=== PATIENT | female | born 1940 | race Caucasian/White ===

== ENCOUNTER → 2019-04-10 | Outpatient (CLI) | payer MEDICARE, BC ==
--- NOTE | 2019-04-10 17:18 | CT ---
EXAMINATION TYPE: CT brain wo con DATE OF EXAM: 04/10/2019 COMPARISON: HISTORY: ALVARENGA after fall injury x3 days ago CT DLP: 1094 mGycm Automated exposure control for dose reduction was used. FINDINGS: There is some cerebral cortical atrophy. There is no mass effect nor midline shift. There is no sign of intracranial hemorrhage. Calvarium is intact. IMPRESSION: CEREBRAL ATROPHY. NO ACUTE INTRACRANIAL ABNORMALITY.
== END | disposition home or self-care (01) ==
LOC: RADCTMAIN 16:55
PROVIDERS: ATTEND Internal Medicine
DX: G44.311 Acute post-traumatic headache, intractable (principal); G31.9 Degenerative disease of nervous system, unspecified
CPT/HCPCS: 70450

== ENCOUNTER 2020-08-26 16:45 | Observation (INO) | payer MEDICARE, BC ==
[2020-08-26 17:09] LABS: Basophils # (A) 0.1 k/uL (0-0.2); Basophils % (A) 1 %; Eosinophils # (A) 0.3 k/uL (0-0.7); Eosinophils % (A) 5 %; HCT 43.6 % (34.0-46.0); HGB 14.1 gm/dL (11.4-16.0); Lymphocytes # (A) 2.1 k/uL (1.0-4.8); Lymphocytes % (A) 41 %; MCH 28.3 pg (25.0-35.0); MCHC 32.3 g/dL (31.0-37.0); MCV 87.5 fL (80.0-100.0); Mean Platelet Volume 6.7; Monocytes # (A) 0.2 k/uL (0-1.0); Monocytes % (A) 4 %; Neutrophils # (A) 2.5 k/uL (1.3-7.7); Neutrophils % (A) 47 %; Platelet Count 205 k/uL (150-450); RBC 4.98 m/uL (3.80-5.40); RDW 15.9 % (11.5-15.5); WBC 5.2 k/uL (3.8-10.6)
[2020-08-26 17:18] LABS: Albumin 4.2 g/dL (3.5-5.0); Calcium 9.2 mg/dL (8.4-10.2); Magnesium 1.9 mg/dL (1.6-2.3); Potassium 4.2 mmol/L (3.5-5.1); Total Bilirubin 0.5 mg/dL (0.2-1.3); Total Protein 7.4 g/dL (6.3-8.2)
--- NOTE | 2020-08-26 17:23 | XR ---
EXAMINATION TYPE: XR chest 2V DATE OF EXAM: 08/26/2020 COMPARISON: Prior chest x-ray 08/15/2015 HISTORY: Chest pain TECHNIQUE: Frontal and lateral views of the chest are obtained. FINDINGS: There is no focal air space opacity, pleural effusion, or pneumothorax seen. The cardiac silhouette size is stable and enlarged. Prominent lung volumes could be due to underlying COPD. Radha ent is post median sternotomy. The osseous structures are intact. IMPRESSION: No acute cardiopulmonary process.
--- NOTE | 2020-08-26 17:29 | ED ---
Chest Pain HPI - General Chief Complaint: Chest Pain Stated Complaint: chest pain Time Seen by Provider: 08/26/20 16:45 Source: patient, EMS, RN notes reviewed Mode of arrival: EMS - History of Present Illness Initial Comments: this is a 80-year-old female history of heart disease bypass surgery who just a heart failure who states she had the onset this afternoon of retrosternal chest pain with 9/10 severity she did take one nitroglycerin was brought down to a 5 to is brought in by EMS. After a second nitroglycerin the pain is now 0. No fevers chills nausea vomiting sweats no palpitations sensing no radiation of the discomfort. No cough or phlegm production no other modifying factors MD Complaint: chest pain - Related Data Home Medications Medication Instructions Recorded Confirmed Albuterol Inhaler (Mhu) [Ventolin 1 puff INHALATION RT-DAILY PRN 07/24/15 07/25/16 Hfa Inhaler (Mhu)] Butalb/Asprin/Caff 50-325-40Mg 1 cap PO Q4H PRN 07/24/15 07/25/16 [Fiorinal 50-325-40 MG] Isosorbide Mononitrate ER [Imdur] 30 mg PO BID 07/24/15 07/25/16 Sertraline HCl 100 mg PO DAILY 07/24/15 07/25/16 Tiotropium 18 Mcg/Puff [Spiriva] 1 puff INHALATION RT-DAILY 07/24/15 07/25/16 Cyclobenzaprine [Flexeril] 5 mg PO TID PRN 08/13/15 07/25/16 clonazePAM [KlonoPIN] 0.5 mg PO TID PRN 08/13/15 07/25/16 Aspirin EC [Ecotrin] 81 mg PO DAILY 07/25/16 07/25/16 Clopidogrel Bisulfate [Plavix] 75 mg PO DAILY 07/25/16 07/25/16 Ergocalciferol [Vitamin D2] 1.25 mg PO Q7D 07/25/16 07/25/16 Furosemide [Lasix] 40 mg PO DIRECTED 07/25/16 07/25/16 allopurinoL [Zyloprim] 100 mg PO BID 07/25/16 07/25/16 amLODIPine [Norvasc] 5 mg PO BID 07/25/16 07/25/16 Previous Rx's Medication Instructions Recorded HYDROcodone/APAP 10-325MG [[place] 1.5 each PO Q4H PRN #120 tab 08/21/15 10-325] Metoprolol Tartrate [Lopressor] 25 mg PO BID #60 tab 08/21/15 Nitroglycerin Sl Tabs [Nitrostat] 0.4 mg SUBLINGUAL Q5M PRN #25 tab 08/21/15 HYDROcodone/APAP 10-325MG [[place] 1 tab PO Q4HR PRN #6 tab 07/25/16 10-325] traMADol HCl [Ultram] 50 mg PO Q6H PRN #20 tab 07/25/16 Allergies Allergy/AdvReac Type Severity Reaction Status Date / Time [id number]-Vnj Reductase AdvReac Unknown Verified 07/25/16 17:01 Inhibitor zolpidem [From Ambien] AdvReac Unknown Verified 07/25/16 17:01 Review of Systems ROS Statement: Those systems with pertinent positive or pertinent negative responses have been documented in the HPI. ROS Other: All systems not noted in ROS Statement are negative. 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 . History of Any Multi-Drug Resistant Organisms: None Reported Past Surgical History: Coronary Bypass/CABG, Tonsillectomy Additional Past Surgical History / Comment(s): 2010 Cabg-3 vessel, Bilateral FEMEROL ARTERY STENTs about 10 yrs ago. RIGHT CAROTID ENDARTECTOMY, colonoscopy with benign polypectomy. Past Anesthesia/Blood Transfusion Reactions: No Reported Reaction Additional Past Anesthesia/Blood Transfusion Reaction / Comment(s): Pt believes she recieved blood with CABG-no reaction recalled. Past Psychological History: Depression Smoking Status: Former smoker Past Alcohol Use History: None Reported Past Drug Use History: None Reported - Past Family History Mother Family Medical History: Cancer Additional Family Medical History / Comment(s): BREAST with mets- at 67 yrs of age. Father History Unknown: Yes General Exam - General Exam Comments Initial Comments: this is a well-developed well-nourished awake alert oriented 3 female General appearance: alert, in no apparent distress Head exam: Present: atraumatic, normocephalic, normal inspection Eye exam: Present: normal appearance, PERRL, EOMI. Absent: scleral icterus, conjunctival injection, periorbital swelling ENT exam: Present: normal exam, mucous membranes moist Neck exam: Present: normal inspection. Absent: tenderness, meningismus, lymphad enopathy Respiratory exam: Present: normal lung sounds bilaterally. Absent: respiratory distress, wheezes, rales, rhonchi, stridor Cardiovascular Exam: Present: regular rate, normal rhythm, normal heart sounds. Absent: systolic murmur, diastolic murmur, rubs, gallop, clicks GI/Abdominal exam: Present: soft, normal bowel sounds. Absent: distended, tenderness, guarding, rebound, rigid Extremities exam: Present: normal inspection, full ROM, normal capillary refill. Absent: tenderness, pedal edema, joint swelling, calf tenderness Back exam: Present: normal inspection Neurological exam: Present: alert, oriented X3, CN II-XII intact Psychiatric exam: Present: normal affect, normal mood Skin exam: Present: warm, dry, intact, normal color. Absent: rash Course Vital Signs 08/26/20 08/26/20 16:49 18:46 Temperature 98.2 F Pulse Rate 65 71 Respiratory 18 18 Rate Blood Pressure 170/70 120/60 O2 Sat by Pulse 99 96 Oximetry - Reevaluation(s) Reevaluation #1: 08/26/20 19:24 no further chest pain and reevaluation. Chest Pain MDM - MDM review the imaging shows no acute findings. I did discuss the findings with patient and with Dr. Young. Patient be admitted for inpatient evaluation of unstable angina. Cardiology will be consulted. Critical Care Time Critical Care Time: Yes Total Critical Care Time: 31 Critical Care Time: 31 minutes critical care time which includes initial presentation with history physical labs x-rays multiple reevaluation of the patient discussed with the patient family regarding findings discussion with the main physician review of old charting documentation of the above Disposition Clinical Impression: Unstable angina pectoris, Chest pain Disposition: ADMITTED IP TO THIS HOSP Condition: Fair Referrals: Emilie Young MD [Primary Care Provider] - 1-2 days
[2020-08-26 17:30] LABS: INR 0.9 (<1.2); Partial Thromboplastin Time 23.2 sec (22.0-30.0); Prothrombin Time 9.9 sec (9.0-12.0)
[2020-08-26] MEDS ORDERED: HEPARIN SODIUM,PORCINE 5,000 UNIT/ML 1 ML VIAL IV ONE (19:27)
[2020-08-26] MEDS ORDERED: NITROGLYCERIN SL TABS 0.4 MG TAB SUBLINGUAL PRN (19:27)
[2020-08-26] MEDS ORDERED: NON FORMULARY DRUG (Butalb/Asprin/Caff 50-325-40mg 1 EACH Cap) PO PRN (19:28)
[2020-08-26] MEDS ORDERED: traMADol 50 MG TAB PO PRN (19:28)
[2020-08-26] MEDS ORDERED: ALBUTEROL NEBULIZED 2.5 MG/3 ML INHALATION PRN (19:28)
[2020-08-26] MEDS ORDERED: CYCLOBENZAPRINE 5 MG TAB PO PRN (19:28)
[2020-08-26] MEDS ORDERED: SODIUM CHLORIDE 0.9% 1,000 ML IV SCH (19:30)
[2020-08-26] MEDS ORDERED: HEPARIN SOD,PORK IN 0.45% NACL 25,000 UNIT in 0.45% NACL 1 250ML.BAG IV SCH (19:30)
[2020-08-26] MEDS ORDERED: HYDROmorphone 1 MG/ML 1 ML SYRINGE IVP STA (20:08)
[2020-08-26] MEDS: METOPROLOL TARTRATE 25 MG TAB PO SCH (22:27)
[2020-08-26] MEDS: amLODIPine 5 MG TAB PO SCH (22:28)
[2020-08-26] MEDS: allopurinoL 100 MG TAB PO SCH (22:28)
[2020-08-26] MEDS: ISOSORBIDE MONONITRATE ER 30 MG TAB.ER.24H PO SCH (22:28)
[2020-08-26] MEDS: clonazePAM 0.5 MG TAB PO PRN (22:28)
[2020-08-26] MEDS ORDERED: HEPARIN SODIUM,PORCINE 5,000 UNIT/ML 1 ML VIAL IV PRN (22:43)
[2020-08-27] MEDS: NITROGLYCERIN OINT 1 INCH/GM PACKET TOPICAL SCH ×2 (03:03→06:50)
[2020-08-27 06:29] LABS: Cholesterol 238 mg/dL (<200); HDL Cholesterol 33 mg/dL (40-60); LDL Cholesterol,Calculated 135 mg/dL (0-99); Triglycerides 352 mg/dL (<150)
[2020-08-27] MEDS ORDERED: PANTOPRAZOLE 40 MG TABLET PO SCH (07:30)
[2020-08-27 07:50] VITALS: RESP 16; TEMP 97.7
[2020-08-27] MEDS: IPRATROPIUM 0.5 MG/2.5 ML NEBU INHALATION SCH ×3 (08:59→16:22)
[2020-08-27] MEDS ORDERED: CLOPIDOGREL 75 MG TAB PO SCH (09:00)
[2020-08-27] MEDS ORDERED: FUROSEMIDE 40 MG TAB PO SCH (09:00)
[2020-08-27] MEDS ORDERED: ASPIRIN 81 MG PO SCH (09:00)
[2020-08-27] MEDS ORDERED: ASPIRIN 325 MG TAB PO SCH (09:00)
[2020-08-27] MEDS ORDERED: SERTRALINE 100 MG TAB PO SCH (09:00)
[2020-08-27] MEDS: ISOSORBIDE MONONITRATE ER 30 MG TAB.ER.24H PO SCH (09:23)
[2020-08-27] MEDS: amLODIPine 5 MG TAB PO SCH (09:23)
[2020-08-27] MEDS: allopurinoL 100 MG TAB PO SCH (09:24)
[2020-08-27] MEDS: METOPROLOL TARTRATE 25 MG TAB PO SCH (09:24)
[2020-08-27] MEDS: HYDROcodone/APAP 10-325MG 1 EACH TAB PO PRN ×2 (09:30→13:28)
--- NOTE | 2020-08-27 10:42 | P.CRDCN ---
History of Present Illness History of present illness: HISTORY OF PRESENTING ILLNESS This is a pleasant 80-year-old female past medical history significant for coronary artery disease status post bypass grafting in 2010 and subsequent PCI to OM1 branch in 2015, history of renal mass status post nephrectomy, hypertension, chronic kidney disease, dyslipidemia and COPD. She follows in the office with Dr. Hernandez. We have been asked to see in consultation for chest pain. He states yesterday through the day she was not feeling like her usual self. She had no appetite and was overall fatigued. In the evening her daughter assisted her to to bed. He immediately upon laying down she felt a heavy sensation in the midsternal region that radiated up to the base of her neck and her jaw felt tight. It was associated with mild nausea. Her daughter gave HER-2 sublingual nitroglycerin and called EMS. On arrival to the emergency department her pain had subsided. She also describes that for the previous 3 days she has been uanble to have a bowel movement and feels like her stomach is distended and bloated. She did have a bowel movement this morning. DIAGNOSTICS EKG reveals sinus mechanism, first-degree AV block and left bundle branch block. Consistent with previous EKGs. No acute changes noted. Chest xray negative for an acute cardiopulmonary process. Laboratory reviewed, CBC unremarkable, sodium 138, potassium 4.2, creatinine 1.28, magnesium 1.9, cardiac enzymes negative 3, NT proBNP 473, LDL 135 and HDL 33. Current cardiac medications include Lasix 10 mg on Wednesday and Wednesday, Norvasc 5 mg twice a day, Imdur 30 mg twice a day, Lopressor 25 mg twice a day and Plavix 75 mg daily. Most recent echocardiogram obtained in 2014 reveals preserved LV systolic function with ejection fraction 55-60%, mild tricuspid regurgitation, mild aortic regurgitation, mild to moderate mitral regurgitation and moderate pulmonary hypertension with an RVSP of 48 mmHg. REVIEW OF SYSTEMS At the time of my exam: CONSTITUTIONAL: Denies fever or chills. CARDIOVASCULAR: Denies chest pain, shortness of breath, orthopnea, PND or pal pitations. RESPIRATORY: Denies cough. GASTROINTESTINAL: Complains of constipation and bloating. Denies abdominal pain, diarrhea, nausea or vomiting. MUSCULOSKELETAL: Denies myalgias. HEMATOLOGIC: Denies history of anemia or bleeding. PHYSICAL EXAMINATION Blood pressure 164/80 heart rate 65 afebrile and maintaining oxygen saturation on room air. CONSTITUTIONAL: No apparent distress. HEENT: Head is normocephalic. Pupils are equal, round. Sclerae anicteric. Mucous membranes of the mouth are moist. No JVD. No carotid bruit. CHEST EXAMINATION: Lungs are clear to auscultation. No chest wall tenderness is noted on palpation or with deep breathing. HEART EXAMINATION: Regular rate and rhythm. S1, S2 heard. Systolic ejection murmur at the left sternal border, no gallops or rub. ABDOMEN: Soft, nontender. Positive bowel sounds. EXTREMITIES: 2+ peripheral pulses, trace bilateral lower extremity edema and no calf tenderness. NEUROLOGIC EXAMINATION: Patient is awake, alert and oriented x3. ASSESSMENT Chest pain, an acute coronary event has been ruled out. Abdominal bloating and constipation Coronary artery disease status post bypass grafting and subsequent PCI Chronic kidney disease with history of nephrectomy Hypertension Dyslipidemia, intolerant to statins COPD Former nicotine dependence General debility requiring 24-hour care PLAN An acute coronary event has been ruled out. Pain possibly related to constipation and bloating causing increased pressure on the chest when she laid flat. Clinically she is euvolemic with some mild lower extremity edema likely related to norvasc. Given her chronic kidney disease we recommend a conservative medical approach. Obtain 2D echocardiogram and doppler study to assess cardiac sturcture and function. Thank you kindly for this consultation. Nurse Practitioner note has been reviewed, I agree with a documented findings and plan of care. Patient was seen and examined. 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 . History of Any Multi-Drug Resistant Organisms: None Reported Past Surgical History: Coronary Bypass/CABG, Tonsillectomy Additional Past Surgical History / Comment(s): 2010 Cabg-3 vessel, Bilateral FEMEROL ARTERY STENTs about 10 yrs ago. RIGHT CAROTID ENDARTECTOMY, colonoscopy with benign polypectomy. Past Anesthesia/Blood Transfusion Reactions: No Reported Reaction Additional Past Anesthesia/Blood Transfusion Reaction / Comment(s): Pt believes she recieved blood with CABG-no reaction recalled. Past Psychological History: Depression Additional Psychological History / Comment(s): Pt resides in her apt alone. She uses a cane to ambulate due to her back problems. She also has a rolling walker with a seat. She no longer drives-family takes her places. Her idania's cook food for her. She performs her own ADLs. If she is out and needs to walk a long distance she will use the store's wheelchair. Smoking Status: Former smoker Past Alcohol Use History: None Reported Past Drug Use History: None Reported - Past Family History Mother Family Medical History: Cancer Additional Family Medical History / Comment(s): BREAST with mets- at 67 yrs of age. Father History Unknown: Yes Medications and Allergies Home Medications Medication Instructions Recorded Confirmed Type Isosorbide Mononitrate ER [Imdur] 30 mg PO BID 07/24/15 08/26/20 History Sertraline HCl 100 mg PO DAILY 07/24/15 08/26/20 History Tiotropium 18 Mcg/Puff [Spiriva] 1 puff INHALATION RT-DAILY 07/24/15 08/26/20 History clonazePAM [KlonoPIN] 0.5 mg PO TID PRN 08/13/15 08/26/20 History Metoprolol Tartrate [Lopressor] 25 mg PO BID #60 tab 08/21/15 08/26/20 Rx Nitroglycerin Sl Tabs [Nitrostat] 0.4 mg SUBLINGUAL Q5M PRN #25 tab 08/21/15 08/26/20 Rx Clopidogrel Bisulfate [Plavix] 75 mg PO DAILY 07/25/16 08/26/20 History allopurinoL [Zyloprim] 100 mg PO BID@1500,1900 07/25/16 08/26/20 History amLODIPine [Norvasc] 5 mg PO BID 07/25/16 08/26/20 History Buprenorphine [[place] 10 MCG/HOUR] 1 patch TRANSDERM FR 08/26/20 08/26/20 History Cholecalciferol [Vitamin D3 (25 1,000 unit PO DAILY 08/26/20 08/26/20 History Mcg = 1000 Iu)] Colchicine 0.6 mg PO DAILY 08/26/20 08/26/20 History Furosemide [Lasix] 10 mg PO WEFR 08/26/20 08/26/20 History Gabapentin 300 mg PO Q6H 08/26/20 08/26/20 History HYDROcodone/APAP 10-325MG [[place] 1 tab PO Q6H 08/26/20 08/26/20 History 10-325] Levothyroxine Sodium [Synthroid] 50 mcg PO DAILY 08/26/20 08/26/20 History Allergies Allergy/AdvReac Type Severity Reaction Status Date / Time hydralazine Allergy Rash/Hives Verified 08/26/20 21:38 Fimxlqf-Cbu-Kap Reductase AdvReac Unknown Verified 07/25/16 17:01 Inhibitor zolpidem [From Ambien] AdvReac Unknown Verified 07/25/16 17:01 Physical Exam Vitals: Vital Signs Temp Pulse Pulse Resp BP BP BP 08/27/20 07:49 97.7 F 65 16 164/80 08/27/20 03:45 19 08/26/20 21:15 98 F 64 18 168/78 08/26/20 18:46 71 18 120/60 08/26/20 16:49 98.2 F 65 18 170/70 Pulse Ox 08/27/20 07:49 95 08/27/20 03:45 08/26/20 21:15 98 08/26/20 18:46 96 08/26/20 16:49 99 Intake and Output 08/26/20 08/27/20 08/27/20 22:59 06:59 14:59 Intake Total 70.872 Output Total 400 Balance -329.128 Intake: Intake, IV Titration 70.872 Amount Heparin Sod,Pork in 0.45% 70.872 NaCl 25,000 unit In 0.45 % NaCl 1 250ml.bag @ 12 UNITS/KG/HR 9.798 mls/hr IV .Q24H [facility] Rx#: [id number] Output: Urine 400 Other: Voiding Method Bedside Commode Bedside Commode # Voids 1 1 Weight 81.647 kg Results 08/26/20 16:54 08/26/20 16:54 Cardiac Enzymes 08/26/20 08/26/20 08/26/20 Range/Units 16:54 16:54 20:07 AST 44 H (14-36) U/L Troponin I <0.012 <0.012 (0.000-0.034) ng/mL 08/26/20 Range/Units 22:59 AST (14-36) U/L Troponin I <0.012 (0.000-0.034) ng/mL Coagulation 08/26/20 08/27/20 Range/Units 16:54 04:58 PT 9.9 (9.0-12.0) sec APTT 23.2 60.4 H (22.0-30.0) sec Lipids 08/27/20 Range/Units 04:58 Triglycerides 352 H (<150) mg/dL Cholesterol 238 H (<200) mg/dL HDL Cholesterol 33 L (40-60) mg/dL CBC 08/26/20 Range/Units 16:54 WBC 5.2 (3.8-10.6) k/uL RBC 4.98 (3.80-5.40) m/uL Hgb 14.1 (11.4-16.0) gm/dL Hct 43.6 (34.0-46.0) % Plt Count 205 (150-450) k/uL Comprehensive Metabolic Panel 08/26/20 Range/Units 16:54 Sodium 138 (137-145) mmol/L Potassium 4.2 (3.5-5.1) mmol/L Chloride 106 (98-107) mmol/L Carbon Dioxide 26 (22-30) mmol/L BUN 23 H (7-17) mg/dL Creatinine 1.28 H (0.52-1.04) mg/dL Glucose 109 H (74-99) mg/dL Calcium 9.2 (8.4-10.2) mg/dL AST 44 H (14-36) U/L ALT 38 H (4-34) U/L Alkaline Phosphatase 116 (38-126) U/L Total Protein 7.4 (6.3-8.2) g/dL Albumin 4.2 (3.5-5.0) g/dL Current Medications Generic Name Dose Route Start Last Admin Trade Name Freq PRN Reason Stop Dose Admin Hydrocodone Bitart/Acetaminophen 1 each 08/26/20 19:28 Hydrocodone/Apap 10-325mg 1 Each Tab PO Q4HR PRN Pain Albuterol Sulfate 2.5 mg 08/26/20 19:28 Albuterol Nebulized 2.5 Mg/3 Ml INHALATION RT-DAILY PRN Shortness Of Breath Or Wheezin Allopurinol 100 mg 08/26/20 21:00 08/26/20 22:28 Allopurinol 100 Mg Tab PO 100 mg BID JAMMIE Administration Amlodipine Besylate 5 mg 08/26/20 21:00 08/26/20 22:28 Amlodipine 5 Mg Tab PO 5 mg BID JAMMIE Administration Aspirin 325 mg 08/27/20 09:00 Aspirin 325 Mg Tab PO DAILY [facility] Clonazepam 0.5 mg 08/26/20 19:28 08/26/20 22:28 Clonazepam 0.5 Mg Tab PO 0.5 mg TID PRN Administration restless legs Clopidogrel Bisulfate 75 mg 08/27/20 09:00 Clopidogrel 75 Mg Tab PO DAILY [facility] Cyclobenzaprine HCl 5 mg 08/26/20 19:28 Cyclobenzaprine 5 Mg Tab PO TID PRN Muscle Pain Ergocalciferol 50,000 unit 09/02/20 09:00 Ergocalciferol 50,000 Unit Cap PO Q7D [facility] Furosemide 40 mg 08/27/20 09:00 Furosemide 40 Mg Tab PO Q48H [facility] Heparin Sodium (Porcine) 0 unit 08/26/20 22:43 Heparin Sodium,Porcine 5,000 Unit/Ml 1 Ml Vial IV PER PROTOCOL PRN Low PTT Protocol Sodium Chloride 1,000 mls @ 20 mls/hr 08/26/20 19:30 08/26/20 22:37 Saline 0.9% IV 20 mls/hr .Q24H JAMMIE Administration Heparin Sodium/Sodium Chloride 250 mls @ 9.798 mls/hr 08/26/20 19:30 08/27/20 06:07 25,000 unit/ Sodium Chloride IV 12 units/kg/hr .Q24H JAMMIE 9.798 mls/hr Titration Protocol 12 UNITS/KG/HR Ipratropium [place] 0.5 mg 08/27/20 08:00 Ipratropium 0.5 Mg/2.5 Ml Nebu INHALATION RT-QID [facility] Isosorbide Mononitrate 30 mg 08/26/20 21:00 08/26/20 22:28 Isosorbide Mononitrate Er 30 Mg Tab.Er.24h PO 30 mg BID JAMMIE Administration Metoprolol Tartrate 25 mg 08/26/20 21:00 08/26/20 22:27 Metoprolol Tartrate 25 Mg Tab PO 25 mg BID [facility] Administration Nitroglycerin 0.4 mg 08/26/20 19:27 Nitroglycerin Sl Tabs 0.4 Mg Tab SUBLINGUAL Q5M PRN Chest Pain Nitroglycerin 1 inch 08/27/20 00:00 08/27/20 06:50 Nitroglycerin Oint 1 Inch/Gm Packet TOPICAL Not Given Q6HR [facility] Non-Formulary Medication 1 cap 08/26/20 19:28 Butalb/Asprin/Caff 50-325-40mg PO Q4H PRN Migraine Headache Pantoprazole Sodium 40 mg 08/27/20 07:30 08/27/20 06:50 Pantoprazole 40 Mg Tablet PO 40 mg AC-BRKFST [facility] Administration Sertraline HCl 100 mg 08/27/20 09:00 Sertraline 100 Mg Tab PO DAILY [facility] Tramadol HCl 50 mg 08/26/20 19:28 Tramadol 50 Mg Tab PO Q6H PRN Pain/Discomfort Intake and Output 08/26/20 08/27/20 08/27/20 22:59 06:59 14:59 Intake Total 70.872 Output Total 400 Balance -329.128 Intake: Intake, IV Titration 70.872 Amount Heparin Sod,Pork in 0.45% 70.872 NaCl 25,000 unit In 0.45 % NaCl 1 250ml.bag @ 12 UNITS/KG/HR 9.798 mls/hr IV .Q24H [facility] Rx#: [id number] Output: Urine 400 Other: Voiding Method Bedside Commode Bedside Commode # Voids 1 1 Weight 81.647 kg 08/26/20 16:54 08/26/20 16:54
[2020-08-27] MEDS: clonazePAM 0.5 MG TAB PO PRN (11:07)
--- NOTE | 2020-08-27 11:46 | ECHOF ---
Referral Reason:cp MEASUREMENTS -------- HEIGHT: 162.6 cm WEIGHT: 81.6 kg BP: 164/80 RVIDd: 2.7 cm (< 3.3) IVSd: 1.2 cm (0.6 - 1.1) LVIDd: 4.9 cm (3.9 - 5.3) LVPWd: 1.0 cm (0.6 - 1.1) IVSs: 1.6 cm LVIDs: 3.3 cm LVPWs: 1.7 cm LA Diam: 3.8 cm (2.7 - 3.8) LAESV Index (A-L): 29.13 ml/m Ao Diam: 2.6 cm (2.0 - 3.7) AV Cusp: 1.6 cm (1.5 - 2.6) MV EXCURSION: 11.892 mm (> 18.000) MV EF SLOPE: 27 mm/s (70 - 150) EPSS: 0.4 cm MV E Wenceslao: 1.42 m/s MV DecT: 248 ms MV A [place]ences[place]o: 1.21 m/s MV E/A Ratio: 1.17 AV maxP.29 mmHg AV meanP.95 mmHg RAP: 5.00 mmHg RVSP: 30.72 mmHg FINDINGS -------- Sinus rhythm. This was a technically adequate study. The left ventricular size is normal. There is borderline concentric left ventricular hypertrophy. Overall left ventricular systolic function is normal with, an EF between 55 - 60 %. The right ventricle is normal in size. LA is midly dilated 29-33ml/m2. The right atrium is normal in size. There is mild aortic valve sclerosis. There is mild aortic regurgitation. There is mild aortic st enosis present. Peak/mean gradient across the Aortic Valve is 17.29mmHg / 8.95mmHg. Mild mitral annular calcification present. [id number] mitral regurgitation is present. Mild tricuspid regurgitation present. Trace/mild (physiologic) pulmonic regurgitation. The aortic root size is normal. IVC Not well visulized. There is no pericardial effusion. CONCLUSIONS -------- 1. The left ventricular size is normal. 2. There is borderline concentric left ventricular hypertrophy. 3. Overall left ventricular systolic function is normal with, an EF between 55 - 60 %. 4. LA is midly dilated 29-33ml/m2. 5. There is mild aortic valve sclerosis. 6. There is mild aortic regurgitation. 7. There is mild aortic stenosis present. 8. Peak/mean gradient across the Aortic Valve is 17.29mmHg / 8.95mmHg. 9. Mild mitral annular calcification present. 10. [id number] mitral regurgitation is present. 11. Mild tricuspid regurgitation present. 12. Trace/mild (physiologic) pulmonic regurgitation. 13. There is no pericardial effusion. MANAGED CARE DIRECTOR: ANURAG Zhou
[2020-08-27 12:29] VITALS: BP 151/70; PULSE 61
--- NOTE | 2020-08-27 12:59 | P.HPIM ---
History of Present Illness H&P Date: 08/27/20 Chief Complaint: chest pain History and physical and discharge summary This is an 80 year old female with previous medical history significant for coronary artery disease post CABG X 3 with MIKE to LAD, SVG to Dx and SVG to RCA, with last heart catherization done in 2014 which found chronically occluded RCA, chronically occluded MIKE to LAD and patent SVG to Dx and patent SVG to RCA, she was also found to have critical stenosis of the OM1 and she underwent PCI of the vessel, also history of hypertension and hypertensive cardiovascular disease, hyperlipidemia, PAD, COPD and CKD [id number], with significant spondylosis of the lumbar spine and chronic pain syndrome, has been on multiple medications chronically to keep her pain under control, higuera been inactive for quiet sometimes and stay in her wheelchair most of the time and her daughter Zoya is her primary career representative, patient presented o the Emergency department at [facility] via EMS after she developed to have retrosternal chest pain 9/10 in intensity, she did take one nitroglycerin which brought it down to 5/10 and she cam to the hospital for evaluation, her EKG was ok and her troponins were negative, was admitted for cardiac evaluation. Review of Systems Constitutional: Reports chronic pain, Reports fatigue, Reports weakness, Denies fever Ears: bilateral: decreased hearing Ears, nose, mouth and throat: Denies dysphagia, Denies neck lump, Denies swelling in throat, Denies sore throat Cardiovascular: Reports chest pain, Reports decreased exercise tolerance, Reports dyspnea on exertion, Reports edema, Reports shortness of breath, Denies rapid heart beat, Denies syncope Respiratory: Denies congestion, Denies cough with sputum, Denies home oxygen, Denies sleep apnea, Denies snoring, Denies wheezing Gastrointestinal: Denies abdominal pain, Denies bloating, Denies BRBPR, Denies change in bowel habits, Denies heartburn, Denies hematemesis, Denies melena, Denies nausea, Denies vomiting Genitourinary: Reports nocturia, Denies dysuria Menstruation: Reports postmenopausal Musculoskeletal: Reports gait dysfunction, Reports low back pain, Reports morning stiffness, Reports muscle cramps, Reports muscle weakness, Reports myalgias, Reports shooting leg pain Musculoskeletal: bilateral: ankle pain, ankle stiffness, ankle swelling, foot pain, foot stiffness, foot swelling, hand pain, hand stiffness, hip pain, hip st iffness, knee pain, knee stiffness, shoulder pain, shoulder stiffness, wrist pain, wrist stiffness, absent: elbow pain, elbow stiffness, elbow swelling, hand swelling, hip swelling, knee swelling, shoulder swelling, wrist swelling Integumentary: Denies pruritus, Denies rash Neurological: Reports gait dysfunction, Reports hearing difficulties, Reports paresthesias, Reports weakness Psychiatric: Reports anxiety, Reports depression, Denies sadness/tearfulness, Denies sleep disturbances, Denies suicidal ideation Endocrine: Denies fatigue, Denies weight change Past Medical History Past Medical History: Coronary Artery Disease (CAD), Chest Pain / Angina, COPD, CVA/TIA, Hyperlipidemia, Hypertension, Myocardial Infarction ([place]), Myocardial Infarction (non Q-wave), Musculoskeletal Disorder, Osteoarthritis (OA), Renal Disease, Thyroid Disorder, Vascular Disorder Additional Past Medical History / Comment(s): Other HX: Solitary kidney (L kidney nonfunctioning), PVD, TIA, vertigo, GOUT bilateral feet toes and R thumb, CHRONIC LUMBAR BACK PAIN, heniated discs. . History of Any Multi-Drug Resistant Organisms: None Reported Past Surgical History: Coronary Bypass/CABG, Tonsillectomy Additional Past Surgical History / Comment(s): 2010 Cabg-3 vessel, Bilateral FEMEROL ARTERY STENTs about 10 yrs ago. RIGHT CAROTID ENDARTECTOMY, colonoscopy with benign polypectomy. Past Anesthesia/Blood Transfusion Reactions: No Reported Reaction Additional Past Anesthesia/Blood Transfusion Reaction / Comment(s): Pt believes she recieved blood with CABG-no reaction recalled. Past Psychological History: Depression Additional Psychological History / Comment(s): Pt resides in her apt alone. She uses a cane to ambulate due to her back problems. She also has a rolling walker with a seat. She no longer drives-family takes her places. Her idania's cook food for her. She performs her own ADLs. If she is out and needs to walk a long distance she will use the store's wheelchair. Smoking Status: Former smoker Past Alcohol Use History: None Reported Past Drug Use History: None Reported - Past Family History Mother Family Medical History: Cancer Additional Family Medical History / Comment(s): BREAST with mets- at 67 yrs of age. Father History Unknown: Yes Medications and Allergies Home Medications Medication Instructions Recorded Confirmed Type Isosorbide Mononitrate ER [Imdur] 30 mg PO BID 07/24/15 08/26/20 History Sertraline HCl 100 mg PO DAILY 07/24/15 08/26/20 History Tiotropium 18 Mcg/Puff [Spiriva] 1 puff INHALATION RT-DAILY 07/24/15 08/26/20 History clonazePAM [KlonoPIN] 0.5 mg PO TID PRN 08/13/15 08/26/20 History Metoprolol Tartrate [Lopressor] 25 mg PO BID #60 tab 08/21/15 08/26/20 Rx Nitroglycerin Sl Tabs [Nitrostat] 0.4 mg SUBLINGUAL Q5M PRN #25 tab 08/21/15 08/26/20 Rx Clopidogrel Bisulfate [Plavix] 75 mg PO DAILY 07/25/16 08/26/20 History allopurinoL [Zyloprim] 100 mg PO BID@1500,1900 07/25/16 08/26/20 History amLODIPine [Norvasc] 5 mg PO BID 07/25/16 08/26/20 History Buprenorphine [Butrans 10 MCG/HOUR] 1 patch TRANSDERM FR 08/26/20 08/26/20 History Cholecalciferol [Vitamin D3 (25 1,000 unit PO DAILY 08/26/20 08/26/20 History Mcg = 1000 Iu)] Colchicine 0.6 mg PO DAILY 08/26/20 08/26/20 History Furosemide [Lasix] 10 mg PO WEFR 08/26/20 08/26/20 History Gabapentin 300 mg PO Q6H 08/26/20 08/26/20 History HYDROcodone/APAP 10-325MG [[place] 1 tab PO Q6H 08/26/20 08/26/20 History 10-325] Levothyroxine Sodium [Synthroid] 50 mcg PO DAILY 08/26/20 08/26/20 History Allergies Allergy/AdvReac Type Severity Reaction Status Date / Time hydralazine Allergy Rash/Hives Verified 08/26/20 21:38 Itwccsp-Zgf-Yfl Reductase AdvReac Unknown Verified 07/25/16 17:01 Inhibitor zolpidem [From Ambien] AdvReac Unknown Verified 07/25/16 17:01 Physical Exam Vitals: Vital Signs Temp Pulse Pulse Resp BP BP Pulse Ox 08/26/20 21:15 98 F 64 18 168/78 98 08/26/20 18:46 71 18 120/60 96 08/26/20 16:49 98.2 F 65 18 170/70 99 Intake and Output 08/26/20 08/26/20 08/27/20 14:59 22:59 06:59 Other: Voiding Method Bedside Commode # Voids 1 Weight 81.647 kg Physical examination: HEENT: head is atraumatic normocephalic, pupils were equal round reactive to light and accommodations extra ocular muscle movements were intact. Neck: supple, no JVP, decreased carotid upstrokes bilaterally. Chest: decrease breath sounds at the bases with few ronchi and minimal expiratory wheezes, no chest wall renderness or intercostal retraction. Heart: first heart sound is depressed, second heart sound is normal there is MATT 2/6 located at the left sternal border. Abdomen: full , distended , non specific tenderness, positive bowel sounds. Extremities: there is trace edema no alexa tenderness DP +1 bilaterally. Neurologic examination: patient is awake alert and oriented X 3 CN II- XII are grossly intact , muscle power 4/5 in bilateral upper extremities and 3/5 in bilateral lower extremities, deep tendon reflexes were depressed. Results CBC & Chem 7: 08/26/20 16:54 08/26/20 16:54 Labs: Abnormal Lab Results - Last 24 Hours (Table) 08/26/20 08/26/20 Range/Units 16:54 16:54 RDW 15.9 H (11.5-15.5) % BUN 23 H (7-17) mg/dL Creatinine 1.28 H (0.52-1.04) mg/dL Glucose 109 H (74-99) mg/dL AST 44 H (14-36) U/L ALT 38 H (4-34) U/L Thrombosis Risk Factor Assmnt - DVT/VTE Prophylaxis DVT/VTE Prophylaxis: Pharmacologic Prophylaxis ordered - Choose All That Apply Any of the Below Risk Factors Present?: Yes Each Factor Represents 1 point: Abnormal pulmonary function (COPD), Obesity (BMI >25) Each Risk Factor Represents 3 Points: Age 75 years or older Thrombosis Risk Factor Assessment Total Risk Factor Score: 5 Thrombosis Risk Factor Assessment Level: High Risk Assessment and Plan Assessment: Assessment and plan: 1. Chest pain likely related to CAD. we will continue with ASA 325 mg orally daily, plavix 75 mg orally daily, metoprolol 25 mg orally bid and patient has not been taking STATINS and declined PCSK9 due to sever myopathy and she is aware of the risk of worsening CAD and her daughter is aware also, troponins were negative , we will continue with Nitro paste and heparin drip ,cardiology consultaion and echocardiogram, she will likely need left heart catherization. 2. history of CAD post CABG x3 in 2010 and last heart catherization was in 2014. we will continue with current treatment as in paragraph #1. 3. Hypertension and hypertensive cardiovascular disease. we will continue with Metoprolol 25 mg orally bid and Amlodipine 5 mg orally bid. 4. Hyperlipidemia. patient is intolerant to STATINS due to sever myopathy. 5. Hypothyroidism. we will continue with Synthroid 50 mcg orally daily. 6. CKD stage 3a. stable. 7. history of gout. we will continue with Allopurinol 100 mg orally BID along with Colchicine 0.6 mg orally daily. 8. COPD. we will continue with nebulized treatment. 9. Restless leg syndrom. we will continue with Klonopin 0.5 mg orally tid. 10. Depression. we will continue with Sertraline 100 mg po daily. 11. chronic pain syndrome due to sever spondylosis of the lumbar spine . we will continue with [place] 10/325 mg orally every 6 hours. 12. PAD. post PTBA. we will continue with ASA 325 mg orally daily and plavix 75 mg orally daily, not able to take STATINS. 13. DVT prophylaxis. currently on heparin drip. 14. GI prophylaxis. we will continue with protonix 40 mg orally daily. 15. OBS.
[2020-08-27] MEDS ORDERED: GABAPENTIN 300 MG CAP PO SCH (14:30)
[2020-09-02] MEDS ORDERED: ERGOCALCIFEROL 50,000 UNIT CAP PO SCH (09:00)
== END 2020-08-27 16:15 | disposition home or self-care (01) ==
LOC: EC 16:45 → 3NCARDOBS 19:27
PROVIDERS: ADMIT Internal Medicine; ATTEND Internal Medicine
DX: I25.110 Atherosclerotic heart disease of native coronary artery with unstable angina pectoris (principal); E03.9 Hypothyroidism, unspecified; E78.5 Hyperlipidemia, unspecified; I25.810 Atherosclerosis of coronary artery bypass graft(s) without angina pectoris; I13.0 Hypertensive heart and chronic kidney disease with heart failure and stage 1 through stage 4 chronic kidney disease, or unspecified chronic kidney disease; F32.9 Major depressive disorder, single episode, unspecified; I44.7 Left bundle-branch block, unspecified; I44.0 Atrioventricular block, first degree; G25.81 Restless legs syndrome; G89.4 Chronic pain syndrome; I25.2 Old myocardial infarction; I50.9 Heart failure, unspecified; I73.9 Peripheral vascular disease, unspecified; J44.9 Chronic obstructive pulmonary disease, unspecified; K59.00 Constipation, unspecified; M47.816 Spondylosis without myelopathy or radiculopathy, lumbar region; N18.31 Chronic kidney disease, stage 3a; Z79.02 Long term (current) use of antithrombotics/antiplatelets; Z79.82 Long term (current) use of aspirin; Z79.890 Hormone replacement therapy; Z79.899 Other long term (current) drug therapy; Z86.73 Personal history of transient ischemic attack (TIA), and cerebral infarction without residual deficits; Z87.891 Personal history of nicotine dependence; Z90.5 Acquired absence of kidney
CPT/HCPCS: 93005 ×2; 96365; 96366 ×2; 96376; 96375; 99291; 36415; 94640; 93306; 97161; 83880; 80061; 80053; 82550; 83735; 84484; 85025; 85610; 85730 ×2; 71046; G0378 ×2; J1644 ×2; J1170

== ENCOUNTER 2020-10-18 00:02 | Observation (INO) | payer MEDICARE, BC ==
--- NOTE | 2020-10-18 00:08 | ED ---
Chest Pain HPI - General Stated Complaint: Chest pain Time Seen by Provider: 10/18/20 00:03 Source: RN notes reviewed, old records reviewed - History of Present Illness Initial Comments: This is an 80-year-old female with a long medical history coming in, long history of heart disease coming in for persistent chest pain patient has had episodic chest pain for weeks. Weeks to months. Patient was apparently associated value and regarding her heart and transferred for inpatient treatment. Patient was discharged home with continues to have chest pain. Patient is substernal chest pain just prior to arrival. MD Complaint: chest pain -: hour(s) Onset: during rest Pain Location: substernal, left chest Pain Radiation: LUE Severity: moderate Severity scale (1-10): 4 Quality: heaviness Consistency: constant Improves With: nothing Worsens With: nothing Anginal Symptoms: nausea, diaphoresis, dyspnea Other Symptoms: palpitations Treatments Prior to Arrival: none - Related Data Home Medications Medication Instructions Recorded Confirmed Isosorbide Mononitrate ER [Imdur] 30 mg PO BID 07/24/15 10/18/20 Sertraline HCl 100 mg PO DAILY 07/24/15 10/18/20 Tiotropium 18 Mcg/Puff [Spiriva] 1 puff INHALATION RT-DAILY 07/24/15 10/18/20 clonazePAM [KlonoPIN] 0.5 mg PO TID PRN 08/13/15 10/18/20 Clopidogrel Bisulfate [Plavix] 75 mg PO DAILY 07/25/16 10/18/20 allopurinoL [Zyloprim] 100 mg PO BID 07/25/16 10/18/20 amLODIPine [Norvasc] 5 mg PO BID 07/25/16 10/18/20 Buprenorphine [Butrans 10 MCG/HOUR] 1 patch TRANSDERM FR 08/26/20 10/18/20 Cholecalciferol [Vitamin D3 (25 1,000 unit PO DAILY 08/26/20 10/18/20 Mcg = 1000 Iu)] Colchicine 0.6 mg PO DAILY 08/26/20 10/18/20 Furosemide [Lasix] 10 mg PO WEFR 08/26/20 10/18/20 HYDROcodone/APAP 10-325MG [[place] 1 tab PO Q6H 08/26/20 10/18/20 10-325] Levothyroxine Sodium [Synthroid] 50 mcg PO DAILY 08/26/20 10/18/20 Albuterol Inhaler [Ventolin Hfa 2 puff INHALATION RT-Q4H PRN 10/18/20 10/18/20 Inhaler] Baclofen 10 mg PO BID PRN 10/18/20 10/18/20 Previous Rx's Medication Instructions Recorded Metoprolol Tartrate [Lopressor] 25 mg PO BID #60 tab 08/21/15 Nitroglycerin Sl Tabs [Nitrostat] 0.4 mg SUBLINGUAL Q5M PRN #25 tab 08/21/15 Allergies Allergy/AdvReac Type Severity Reaction Status Date / Time hydralazine Allergy Rash/Hives Verified 10/18/20 09:09 Ihaxeql-Bdr-Eyi Reductase AdvReac Unknown Verified 10/18/20 09:09 Inhibitor zolpidem [From Ambien] AdvReac Unknown Verified 10/18/20 09:09 Review of Systems ROS Statement: Those systems with pertinent positive or pertinent negative responses have been documented in the HPI. ROS Other: All systems not noted in ROS Statement are negative. EKG Findings - EKG Comments: EKG Findings:: EKG is sinus rhythm 66, LA 226 QRS 146 QTc 501 Past Medical History Past Medical History: Coronary Artery Disease (CAD), Chest Pain / Angina, COPD, CVA/TIA, Hyperlipidemia, Hypertension, Myocardial Infarction ([place]), Myocardial Infarction (non Q-wave), Musculoskeletal Disorder, Osteoarthritis (OA), Renal Disease, Thyroid Disorder, Vascular Disorder Additional Past Medical History / Comment(s): Other HX: Solitary kidney (L kidney nonfunctioning), PVD, TIA, vertigo, GOUT bilateral feet toes and R thumb, CHRONIC LUMBAR BACK PAIN, heniated discs. . History of Any Multi-Drug Resistant Organisms: None Reported Past Surgical History: Coronary Bypass/CABG, Tonsillectomy Additional Past Surgical History / Comment(s): 2010 Cabg-3 vessel, Bilateral FEMEROL ARTERY STENTs about 10 yrs ago. RIGHT CAROTID ENDARTECTOMY, colonoscopy with benign polypectomy. Past Anesthesia/Blood Transfusion Reactions: No Reported Reaction Additional Past Anesthesia/Blood Transfusion Reaction / Comment(s): Pt believes she recieved blood with CABG-no reaction recalled. Past Psychological History: Depression Additional Psychological History / Comment(s): Pt resides in her apt alone. She uses a cane to ambulate due to her back problems. She also has a rolling walker with a seat. She no longer drives-family takes her places. Her idania's cook food for her. She performs her own ADLs. If she is out and needs to walk a long distance she will use the store's wheelchair. Smoking Status: Former smoker Past Alcohol Use History: None Reported Past Drug Use History: None Reported - Past Family History Mother Family Medical History: Cancer Additional Family Medical History / Comment(s): BREAST with mets- at 67 yrs of age. Father History Unknown: Yes General Exam General appearance: alert, in no apparent distress Head exam: Present: atraumatic, normocephalic, normal inspection Eye exam: Present: normal appearance, PERRL, EOMI. Absent: scleral icterus, conjunctival injection, periorbital swelling ENT exam: Present: normal exam, mucous membranes moist Neck exam: Present: normal inspection. Absent: tenderness, meningismus, lymphadenopathy Respiratory exam: Present: normal lung sounds bilaterally. Absent: respiratory distress, wheezes, rales, rhonchi, stridor Cardiovascular Exam: Present: regular rate, normal rhythm, normal heart sounds. Absent: systolic murmur, diastolic murmur, rubs, gallop, clicks GI/Abdominal exam: Present: soft, normal bowel sounds. Absent: distended, tenderness, guarding, rebound, rigid Extremities exam: Present: normal inspection, full ROM, normal capillary refill. Absent: tenderness, pedal edema, joint swelling, calf tenderness Back exam: Present: normal inspection Neurological exam: Present: alert, oriented X3, CN II-XII intact Psychiatric exam: Present: normal affect, normal mood Skin exam: Present: warm, dry, intact, normal color. Absent: rash Course Vital Signs 10/18/20 10/18/20 10/18/20 00:05 00:30 02:31 Temperature 97.8 F Pulse Rate 78 62 64 Respiratory 16 18 18 Rate Blood Pressure 188/79 166/76 157/64 O2 Sat by Pulse 96 95 Oximetry 10/18/20 03:16 Temperature 97.8 F Pulse Rate 64 Respiratory 18 Rate Blood Pressure 188/78 O2 Sat by Pulse 95 Oximetry - Reevaluation(s) Reevaluation #1: Medical record is reviewed Patient is informed of results here in the ER and questions are answered Patient spoken with, feeling better, symptoms remained improved - Consultations Consultation #1: Spoke with Dr. Young who agrees to admit this patient Chest Pain MDM - MDM 80 female to the ER for evaluation chest pain. Patient be admitted for chest pain observation and treatment Disposition Clinical Impression: Chest pain, Hx of CABG, Unstable angina pectoris Disposition: ADMITTED IP TO THIS HOSP Condition: Undetermined Is patient prescribed a controlled substance at d/c from ED?: No
[2020-10-18 00:28] LABS: Basophils % (A) 1 %; Eosinophils # (A) 0.3 k/uL (0-0.7); Eosinophils % (A) 6 %; HCT 42.2 % (34.0-46.0); HGB 14.4 gm/dL (11.4-16.0); Lymphocytes # (A) 1.8 k/uL (1.0-4.8); Lymphocytes % (A) 37 %; MCH 28.7 pg (25.0-35.0); MCHC 34.1 g/dL (31.0-37.0); MCV 84.2 fL (80.0-100.0); Mean Platelet Volume 6.8; Monocytes # (A) 0.2 k/uL (0-1.0); Monocytes % (A) 5 %; Neutrophils # (A) 2.4 k/uL (1.3-7.7); Neutrophils % (A) 49 %; Platelet Count 214 k/uL (150-450); RBC 5.02 m/uL (3.80-5.40)
[2020-10-18 00:39] LABS: Partial Thromboplastin Time 25.5 sec (22.0-30.0)
--- NOTE | 2020-10-18 00:41 | XR ---
EXAM: XR Chest, 2 Views CLINICAL HISTORY: ITS.REASON XR Reason: Chest Pain TECHNIQUE: Frontal and lateral views of the chest. COMPARISON: 08/26/2020 FINDINGS: Lungs: Prominent interstitial markings. Pleural space: No effusion. Heart: cardiomegaly. Bones/joints: No acute findings. IMPRESSION: Cardiomegaly with mild vascular congestion.
[2020-10-18 00:46] LABS: Albumin 4.1 g/dL (3.5-5.0); Calcium 9.3 mg/dL (8.4-10.2); Magnesium 1.7 mg/dL (1.6-2.3); Potassium 3.9 mmol/L (3.5-5.1); Total Bilirubin 0.5 mg/dL (0.2-1.3); Total Protein 7.5 g/dL (6.3-8.2)
[2020-10-18] MEDS ORDERED: MORPHINE SULFATE 4 MG/ML SYRINGE IVP STA (02:16)
[2020-10-18] MEDS ORDERED: MORPHINE SULFATE 4 MG/ML SYRINGE IVP PRN (02:16)
[2020-10-18] MEDS ORDERED: HEPARIN SODIUM,PORCINE 5,000 UNIT/ML 1 ML VIAL IV PRN (02:38)
[2020-10-18] MEDS ORDERED: HEPARIN SODIUM,PORCINE 5,000 UNIT/ML 1 ML VIAL IV ONE (02:38)
[2020-10-18] MEDS ORDERED: ASPIRIN 81 MG PO STA (02:38)
[2020-10-18] MEDS ORDERED: NITROGLYCERIN SL TABS 0.4 MG TAB SUBLINGUAL PRN (02:38)
[2020-10-18] MEDS ORDERED: SODIUM CHLORIDE 0.9% 1,000 ML IV SCH (02:45)
[2020-10-18] MEDS ORDERED: HEPARIN SOD,PORK IN 0.45% NACL 25,000 UNIT in 0.45% NACL 1 250ML.BAG IV SCH (02:45)
[2020-10-18] MEDS ORDERED: clonazePAM 0.5 MG TAB PO ONE (02:45)
--- NOTE | 2020-10-18 03:45 | CT ---
EXAM: CT Head Without Intravenous Contrast CLINICAL HISTORY: ITS.REASON CT Reason: cpa TECHNIQUE: Axial computed tomography images of the head/brain without intravenous contrast. CTDI is 49.27 mGy and DLP is 1087.4 mGy-cm. This CT exam was performed using one or more of the following dose reduction techniques: automated exposure control, adjustment of the mA and/or kV according to patient size, and/or use of iterative reconstruction technique. COMPARISON: No relevant prior studies available. FINDINGS: Brain: No hemorrhage or mass effect. Mild cerebral volume loss. Ventricles: No hydrocephalus. Bones/joints: Unremarkable. Soft tissues: Unremarkable. Sinuses: Air fluid levels in the left more than right sphenoid sinus. Mastoid air cells: Clear. IMPRESSION: No acute hemorrhage, hydrocephalus, or mass effect. Air-fluid levels in the sphenoid sinus, correlate with sinusitis.
[2020-10-18 06:15] LABS: Mean Platelet Volume 6.9; Platelet Count 192 k/uL (150-450)
[2020-10-18] MEDS ORDERED: clonazePAM 0.5 MG TAB PO PRN (08:16)
[2020-10-18] MEDS ORDERED: CHOLECALCIFEROL 1,000 UNIT TAB PO SCH (09:00)
[2020-10-18] MEDS ORDERED: CLOPIDOGREL 75 MG TAB PO SCH (09:00)
[2020-10-18] MEDS ORDERED: COLCHICINE 0.6 MG EACH PO SCH (09:00)
[2020-10-18] MEDS ORDERED: METOPROLOL TARTRATE 25 MG TAB PO SCH ×2 (09:00)
[2020-10-18] MEDS ORDERED: BUPRENORPHINE TOPICAL SCH (09:00)
[2020-10-18] MEDS ORDERED: FUROSEMIDE 20 MG TAB PO SCH (09:00)
[2020-10-18] MEDS ORDERED: SERTRALINE 100 MG TAB PO SCH (09:00)
[2020-10-18] MEDS ORDERED: LEVOTHYROXINE 50 MCG TAB PO SCH (09:00)
--- NOTE | 2020-10-18 10:03 | US ---
EXAM: US Abdomen Limited, Gallbladder CLINICAL HISTORY: ITS.REASON US Reason: pain TECHNIQUE: Real-time ultrasound of the right upper quadrant with image documentation. COMPARISON: No relevant prior studies available. FINDINGS: Liver: Liver measures 15.8 cm. Coarse increased echotexture in the liver. This is nonspecific and may represent fatty infiltration Gallbladder: Gallbladder wall measures 2 mm. No pericholecystic fluid. Common bile duct: Common bile duct measures 5 mm. No stones. No dilation. Pancreas: Pancreas, partly obscured by overlying bowel gas. Right kidney: Right kidney measures 11 x 5.3 x 6.1 cm. Anechoic structure in the lower right kidney measuring 2.2 x 2.3 x 2.3 cm. IMPRESSION: 1. No cholelithiasis. 2. No sonographic evidence for acute cholecystitis. 3. Right renal lesion, likely cyst
--- NOTE | 2020-10-18 10:44 | P.HPIM ---
History of Present Illness H&P Date: 10/18/20 Chief Complaint: Chest pain History and Physical and discharge summary This is an 80 year old female with previous medical history signific ant for coronary artery disease post CABG X 3 with MIKE to LAD, SVG to Dx and SVG to RCA, with last heart catherization done in 2014 which found chronically occluded RCA, chronically occluded MIKE to LAD and patent SVG to Dx and patent SVG to RCA, she was also found to have critical stenosis of the OM1 and she underwent PCI of the vessel, also history of hypertension and hypertensive cardiovascular disease, hyperlipidemia, PAD, COPD and CKD [id number], with significant spondylosis of the lumbar spine and chronic pain syndrome, has been on multiple medications chronically to keep her pain under control, was recently hospitalized at [facility] on 08/27/2020 due to chest pain and was seen b y cardiology and it was recommended to treat he conservatively, patient came to the Emergency department today because of recurrent chest pain that and on initial evaluation and her EKG and cardiac enzymes were negative and there was some concerns from her daughter of confusion and possible TIA , CT scan of the brain did not show any evidence of acute bleed or acute stroke, and CXR showed Cardiomegaly, with mild congestion. Patient was seen in consultation by cardiology and she was cleared for discharge and the patient was admitted about a month ago had an echocardiogram that showed preserved LV function, he was recommended to continue with medical management of this point due to her other comorbid conditions, I had a long conversation with the patient about the use of sedative she is ALLERGIC to it and she can't even take [id number] as well knowing that her LDL cholesterol is quite elevated and her goal for LDL cholesterol should be around 55, and the risk of stroke and heart disease is quite elevated Review of Systems Constitutional: Reports chronic pain, Reports fatigue, Reports malaise, Reports weakness, Denies anorexia Eyes: bilateral decreased vision, denies blurred vision, denies bulging eye Ears: bilateral: decreased hearing Ears, nose, mouth and throat: Denies dysphagia, Denies neck lump, Denies sore throat Cardiovascular: Reports chest pain, Reports decreased exercise tolerance, Reports dyspnea on exertion, Reports shortness of breath, Denies rapid heart beat, Denies syncope Respiratory: Denies congestion, Denies cough, Denies cough with sputum, Denies home oxygen, Denies sleep apnea, Denies snoring, Denies wheezing Gastrointestinal: Denies abdominal pain, Denies bloating, Denies BRBPR, Denies heartburn, Denies melena, Denies nausea, Denies vomiting Genitourinary: Reports nocturia, Denies dysuria Menstruation: Reports postmenopausal Musculoskeletal: Denies myalgias Musculoskeletal: left: knee pain, knee stiffness, knee swelling, bilateral: ankle swelling, foot stiffness, foot swelling, hand stiffness, absent: ankle pain, ankle stiffness, elbow pain, elbow stiffness, elbow swelling, foot pain, hand pain, hand swelling, hip pain, hip stiffness, hip swelling, shoulder pain, shoulder stiffness, shoulder swelling, wrist pain, wrist stiffness, wrist swelling Integumentary: Denies pruritus, Denies rash Neurological: Reports memory loss, Reports weakness, Denies numbness Endocrine: Denies fatigue, Denies weight change Past Medical History Past Medical History: Coronary Artery Disease (CAD), Chest Pain / Angina, COPD, CVA/TIA, Hyperlipidemia, Hypertension, Myocardial Infarction ([place]), Myocardial Infarction (non Q-wave), Musculoskeletal Disorder, Osteoarthritis (OA), Renal Disease, Thyroid Disorder, Vascular Disorder Additional Past Medical History / Comment(s): Other HX: Solitary kidney (L kidney nonfunctioning), PVD, TIA, vertigo, GOUT bilateral feet toes and R thumb, CHRONIC LUMBAR BACK PAIN, heniated discs. . Last Myocardial Infarction Date:: 2009 History of Any Multi-Drug Resistant Organisms: None Reported Past Surgical History: Coronary Bypass/CABG, Tonsillectomy Additional Past Surgical History / Comment(s): 2010 Cabg-3 vessel, Bilateral FEMEROL ARTERY STENTs about 10 yrs ago. RIGHT CAROTID ENDARTECTOMY, colonoscopy with benign polypectomy. Past Anesthesia/Blood Transfusion Reactions: No Reported Reaction Additional Past Anesthesia/Blood Transfusion Reaction / Comment(s): Pt believes she recieved blood with CABG-no reaction recalled. Past Psychological History: Depression Additional Psychological History / Comment(s): Pt resides in her apt alone. She uses a cane to ambulate due to her back problems. She also has a rolling walker with a seat. She no longer drives-family takes her places. Her idania's cook food for her. She performs her own ADLs. If she is out and needs to walk a long distance she will use the store's wheelchair. Smoking Status: Former smoker Past Alcohol Use History: None Reported Additional Past Alcohol Use History / Comment(s): Pt states she smokes about 1/2 ppd. She started smoking at age 12yrs. Past Drug Use History: None Reported - Past Family History Mother Family Medical History: Cancer Additional Family Medical History / Comment(s): BREAST with mets- at 67 yrs of age. Father History Unknown: Yes Medications and Allergies Home Medications Medication Instructions Recorded Confirmed Type Isosorbide Mononitrate ER [Imdur] 30 mg PO BID 07/24/15 10/18/20 History Sertraline HCl 100 mg PO DAILY 07/24/15 10/18/20 History Tiotropium 18 Mcg/Puff [Spiriva] 1 puff INHALATION RT-DAILY 07/24/15 10/18/20 History clonazePAM [KlonoPIN] 0.5 mg PO TID PRN 08/13/15 10/18/20 History Metoprolol Tartrate [Lopressor] 25 mg PO BID #60 tab 08/21/15 10/18/20 Rx Nitroglycerin Sl Tabs [Nitrostat] 0.4 mg SUBLINGUAL Q5M PRN #25 tab 08/21/15 10/18/20 Rx Clopidogrel Bisulfate [Plavix] 75 mg PO DAILY 07/25/16 10/18/20 History allopurinoL [Zyloprim] 100 mg PO BID 07/25/16 10/18/20 History amLODIPine [Norvasc] 5 mg PO BID 07/25/16 10/18/20 History Buprenorphine [Butrans 10 MCG/HOUR] 1 patch TRANSDERM FR 08/26/20 10/18/20 History Cholecalciferol [Vitamin D3 (25 1,000 unit PO DAILY 08/26/20 10/18/20 History Mcg = 1000 Iu)] Colchicine 0.6 mg PO DAILY 08/26/20 10/18/20 History Furosemide [Lasix] 10 mg PO WEFR 08/26/20 10/18/20 History HYDROcodone/APAP 10-325MG [[place] 1 tab PO Q6H 08/26/20 10/18/20 History 10-325] Levothyroxine Sodium [Synthroid] 50 mcg PO DAILY 08/26/20 10/18/20 History Albuterol Inhaler [Ventolin Hfa 2 puff INHALATION RT-Q4H PRN 10/18/20 10/18/20 History Inhaler] Baclofen 10 mg PO BID PRN 10/18/20 10/18/20 History Allergies Allergy/AdvReac Type Severity Reaction Status Date / Time hydralazine Allergy Rash/Hives Verified 10/18/20 09:09 [id number] Reductase AdvReac Unknown Verified 10/18/20 09:09 Inhibitor zolpidem [From Ambien] AdvReac Unknown Verified 10/18/20 09:09 Physical Exam Vitals: Vital Signs Temp Pulse Pulse Resp BP BP Pulse Ox 10/18/20 04:57 178/70 10/18/20 04:38 191/81 10/18/20 04:01 99 10/18/20 03:53 97.5 F L 62 18 194/81 99 10/18/20 03:16 97.8 F 64 18 188/78 95 10/18/20 02:31 64 18 157/64 10/18/20 00:30 62 18 166/76 95 10/18/20 00:05 97.8 F 78 16 188/79 96 Intake and Output 10/17/20 10/18/20 10/18/20 22:59 06:59 14:59 Other: Voiding Method Diaper Incontinent # Voids 1 Weight 81.647 kg Physical examination: HEENT: head is atraumatic normocephalic, pupils were equal round reactive to light and accommodations extra ocular muscle movements were intact. Neck: supple, no JVP, decreased carotid upstrokes bilaterally. Chest: decrease breath sounds at the bases with few ronchi and minimal expiratory wheezes, no chest wall renderness or intercostal retraction. Heart: first heart sound is depressed, second heart sound is normal there is MATT 2/6 located at the left sternal border. Abdomen: full , distended , non specific tenderness, positive bowel sounds. Extremities: there is trace edema no alexa tenderness DP +1 bilaterally. Neurologic examination: patient is awake alert and oriented X 3 CN II- XII are grossly intact , muscle power 4/5 in bilateral upper extremities and 3/5 in bilateral lower extremities, deep tendon reflexes were depressed. Results CBC & Chem 7: 10/18/20 05:35 10/18/20 00:15 Labs: Abnormal Lab Results - Last 24 Hours (Table) 10/18/20 10/18/20 Range/Units 00:15 00:15 RDW 16.0 H (11.5-15.5) % Chloride 108 H (98-107) mmol/L BUN 21 H (7-17) mg/dL Creatinine 1.30 H (0.52-1.04) mg/dL Glucose 121 H (74-99) mg/dL AST 38 H (14-36) U/L ALT 35 H (4-34) U/L Alkaline Phosphatase 139 H (38-126) U/L Thrombosis Risk Factor Assmnt - DVT/VTE Prophylaxis DVT/VTE Prophylaxis: Pharmacologic Prophylaxis ordered Assessment and Plan Assessment: Assessment and plan: 1. Chest pain likely related to CAD. we will continue with ASA 325 mg orally daily, plavix 75 mg orally daily, metoprolol 25 mg orally bid and patient has not been taking STATINS and declined PCSK9 due to sever myopathy and she is aware of the risk of worsening CAD and her daughter is aware also, troponins were negative , we will continue with Nitro paste and heparin drip ,cardiology consultaion , had echocardiogram last month, we will leave it up to cardiology to do LHC. 2. history of CAD post CABG x3 in 2009 and last heart catherization was in 2014. we will continue with current treatment as in paragraph #1. 3. Hypertension and hypertensive cardiovascular disease. we will continue with Metoprolol 25 mg orally bid and Amlodipine 5 mg orally bid. 4. Hyperlipidemia. patient is intolerant to STATINS due to sever myopathy. 5. Hypothyroidism. we will continue with Synthroid 50 mcg orally daily. 6. CKD stage 3a. stable. 7. history of gout. we will continue with Allopurinol 100 mg orally BID along with Colchicine 0.6 mg orally daily. 8. COPD. we will continue with nebulized treatment. 9. Restless leg syndrom. we will continue with Klonopin 0.5 mg orally tid. 10. Depression. we will continue with Sertraline 100 mg po daily. 11. chronic pain syndrome due to sever spondylosis of the lumbar spine . we will continue with [place] 10/325 mg orally every 6 hours. 12. PAD. post PTBA. we will continue with ASA 325 mg orally daily and plavix 75 mg orally daily, not able to take STATINS. 13. DVT prophylaxis. currently on heparin drip. 14. GI prophylaxis. we will continue with protonix 40 mg orally daily. 15. OBS. 16. Patient was medically stable for discharge home for follow-up with us as an outpatient in 1 week,follow-up with cardiology in 2 weeks.
[2020-10-18] MEDS: IPRATROPIUM 0.5 MG/2.5 ML NEBU INHALATION SCH ×2 (11:38→16:00)
[2020-10-18] MEDS: GABAPENTIN 300 MG CAP PO SCH ×2 (11:59→15:18)
[2020-10-18] MEDS: HYDROcodone/APAP 10-325MG 1 EACH TAB PO SCH ×2 (12:00→15:18)
[2020-10-18] MEDS: amLODIPine 5 MG TAB PO SCH ×2 (12:00→15:18)
--- NOTE | 2020-10-18 12:56 | P.CRDCN ---
History of Present Illness History of present illness: HISTORY OF PRESENTING ILLNESS This is a pleasant 80-year-old female past medical history significant for coronary artery disease status post CABG in 2010 and subsequent PCI of an OM1 branch in 2015, history of renal mass status post nephrectomy, hypertension, chronic kidney disease, dyslipidemia, COPD. She follows in the office with Dr. Hernandez. We have been asked to see in consultation for chest pain. Patient admits that she had episode yesterday where she started feeling chest pain and pressure, jaw pain and more concerning feeling confused. Daughter also reported from the phone that patient mainly was confused and "not with it" most of the day. Daughter states that she was counting to 100 and would keep repeating that over and over. Patient denies any recent fevers, chills, cough. Daughter and patient were concerned about a possible stroke and therefore presented to emerg ency department. Patient currently states that she now feels fine and back to normal. She denies any further chest pain or pressure. Patient did have previous workup in August for somewhat similar chest pain with an echocardiogram showing normal left ventricular function and without significant valvular disease. There was also concern of possible gallbladder disease and therefore ultrasound was performed which showed no cholecystitis. Patient admits to mild chronic lower extremity edema especially on her left where she had her bypass graft. DIAGNOSTICS EKG reveals normal sinus rhythm, left bundle branch block. CT brain: No acute hemorrhage hydrocephalus or mass effect. Chest x-ray: Cardiomegaly with mild vascular congestion. Laboratory reviewed, white blood cell count 5.0, hemoglobin 14.4, platelets 214, creatinine 1.3, AST 38, ALT was 35, troponin negative 3, proBNP 637. Current cardiac medications include Norvasc 5 mg twice a day, aspirin 325 mg daily, Plavix 75 mg daily, Lasix 10 mg by mouth, Lopressor 25 mg twice a day REVIEW OF SYSTEMS At the time of my exam: CONSTITUTIONAL: Denies fever or chills. CARDIOVASCULAR: +chest pain, no shortness of breath, orthopnea, PND or palpitations. RESPIRATORY: Denies cough. GASTROINTESTINAL: Denies abdominal pain, diarrhea, constipation, nausea or vomiting. MUSCULOSKELETAL: Denies myalgias. NEUROLOGIC: Denies numbness, tingling or weakness. + Confusion ENDOCRINE: Denies fatigue, weight change, polydipsia or polyurina. GENITOURINARY: Denies burning, hematuria or urgency with micturation. HEMATOLOGIC: Denies history of anemia or bleeding. PHYSICAL EXAMINATION Blood pressure 178/70 heart rate 64 afebrile and maintaining oxygen saturation on room air. CONSTITUTIONAL: No apparent distress. Pleasant, appears stated age HEENT: Head is normocephalic. Pupils are equal, round. Sclerae anicteric. Mucous membranes of the mouth are moist. No JVD. No carotid bruit. CHEST EXAMINATION: Lungs are clear to auscultation. No chest wall tenderness is noted on palpation or with deep breathing. HEART EXAMINATION: Regular rate and rhythm. S1, S2 heard. No murmurs, gallops or rub. ABDOMEN: Soft, nontender. Positive bowel sounds. EXTREMITIES: 2+ peripheral pulses, 1+ extremity edema and no calf tenderness. NEUROLOGIC EXAMINATION: Patient is awake, alert and oriented x3. ASSESSMENT 1. Atypical chest pain of unclear etiology however also occurring at the same time of confusion and altered mental status. Troponins negative 3, do not suspect acute coronary syndrome. 2. Stable chronic coronary artery disease. Status post CABG and PCI 3. Essential hypertension, currently elevated, likely exacerbated by pain and anxiety 4. Altered mental status of unclear etiology, questionably metabolic versus other 5. Hyperlipidemia 6. PAD 7. Left bundle branch block 8. Bilateral lower extremity edema, likely component of chronic venous insufficiency. Appears relatively euvolemic proBNP 637 PLAN Patient with recent admission for chest pain 1 month ago with troponins normal and echocardiogram at that time showing preserved ejection fraction. Chest pain appears atypical in nature and troponins negative 3, do not suspect acute coronary syndrome. Would continue with medical therapy with antianginals and aspirin and Plavix as tolerated. Defer further workup of altered mental status to primary team however appears to be back at her baseline. Patient stable for discharge from a cardiology standpoint. Past Medical History Past Medical History: Coronary Artery Disease (CAD), Chest Pain / Angina, COPD, CVA/TIA, Hyperlipidemia, Hypertension, Myocardial Infarction ([place]), Myocardial Infarction (non Q-wave), Musculoskeletal Disorder, Osteoarthritis (OA), Renal Disease, Thyroid Disorder, Vascular Disorder Additional Past Medical History / Comment(s): Other HX: Solitary kidney (L kidney nonfunctioning), PVD, TIA, vertigo, GOUT bilateral feet toes and R thumb, CHRONIC LUMBAR BACK PAIN, heniated discs. . Last Myocardial Infarction Date:: 2009 History of Any Multi-Drug Resistant Organisms: None Reported Past Surgical History: Coronary Bypass/CABG, Tonsillectomy Additional Past Surgical History / Comment(s): 2010 Cabg-3 vessel, Bilateral FEMEROL ARTERY STENTs about 10 yrs ago. RIGHT CAROTID ENDARTECTOMY, colonoscopy with benign polypectomy. Past Anesthesia/Blood Transfusion Reactions: No Reported Reaction Additional Past Anesthesia/Blood Transfusion Reaction / Comment(s): Pt believes she recieved blood with CABG-no reaction recalled. Past Psychological History: Depression Additional Psychological History / Comment(s): Pt resides in her apt alone. She uses a cane to ambulate due to her back problems. She also has a rolling walker with a seat. She no longer drives-family takes her places. Her idania's cook food for her. She performs her own ADLs. If she is out and needs to walk a long distance she will use the store's wheelchair. Smoking Status: Former smoker Past Alcohol Use History: None Reported Additional Past Alcohol Use History / Comment(s): Pt states she smokes about 1/2 ppd. She started smoking at age 12yrs. Past Drug Use History: None Reported - Past Family History Mother Family Medical History: Cancer Additional Family Medical History / Comment(s): BREAST with mets- at 67 yrs of age. Father History Unknown: Yes Medications and Allergies Home Medications Medication Instructions Recorded Confirmed Type Isosorbide Mononitrate ER [Imdur] 30 mg PO BID 07/24/15 10/18/20 History Sertraline HCl 100 mg PO DAILY 07/24/15 10/18/20 History Tiotropium 18 Mcg/Puff [Spiriva] 1 puff INHALATION RT-DAILY 07/24/15 10/18/20 History clonazePAM [KlonoPIN] 0.5 mg PO TID PRN 08/13/15 10/18/20 History Metoprolol Tartrate [Lopressor] 25 mg PO BID #60 tab 08/21/15 10/18/20 Rx Nitroglycerin Sl Tabs [Nitrostat] 0.4 mg SUBLINGUAL Q5M PRN #25 tab 08/21/15 10/18/20 Rx Clopidogrel Bisulfate [Plavix] 75 mg PO DAILY 07/25/16 10/18/20 History allopurinoL [Zyloprim] 100 mg PO BID 07/25/16 10/18/20 History amLODIPine [Norvasc] 5 mg PO BID 07/25/16 10/18/20 History Buprenorphine [Butrans 10 MCG/HOUR] 1 patch TRANSDERM FR 08/26/20 10/18/20 History Cholecalciferol [Vitamin D3 (25 1,000 unit PO DAILY 08/26/20 10/18/20 History Mcg = 1000 Iu)] Colchicine 0.6 mg PO DAILY 08/26/20 10/18/20 History Furosemide [Lasix] 10 mg PO WEFR 08/26/20 10/18/20 History HYDROcodone/APAP 10-325MG [[place] 1 tab PO Q6H 08/26/20 10/18/20 History 10-325] Levothyroxine Sodium [Synthroid] 50 mcg PO DAILY 08/26/20 10/18/20 History Albuterol Inhaler [Ventolin Hfa 2 puff INHALATION RT-Q4H PRN 10/18/20 10/18/20 History Inhaler] Baclofen 10 mg PO BID PRN 10/18/20 10/18/20 History Allergies Allergy/AdvReac Type Severity Reaction Status Date / Time hydralazine Allergy Rash/Hives Verified 10/18/20 09:09 Hezapfv-[id number]-Yjy Reductase AdvReac Unknown Verified 10/18/20 09:09 Inhibitor zolpidem [From Ambien] AdvReac Unknown Verified 10/18/20 09:09 Physical Exam Vitals: Vital Signs Temp Pulse Pulse Resp BP BP Pulse Ox 10/18/20 11:52 64 10/18/20 11:39 64 10/18/20 04:57 178/70 10/18/20 04:38 191/81 10/18/20 04:01 99 10/18/20 03:53 97.5 F L 62 18 194/81 99 10/18/20 03:16 97.8 F 64 18 188/78 95 10/18/20 02:31 64 18 157/64 10/18/20 00:30 62 18 166/76 95 10/18/20 00:05 97.8 F 78 16 188/79 96 Intake and Output 10/17/20 10/18/20 10/18/20 22:59 06:59 14:59 Other: Voiding Method Diaper Incontinent # Voids 1 Weight 81.647 kg Results 10/18/20 05:35 10/18/20 00:15 Cardiac Enzymes 10/18/20 10/18/20 10/18/20 Range/Units 00:15 00:15 05:35 AST 38 H (14-36) U/L Troponin I <0.012 <0.012 (0.000-0.034) ng/mL 10/18/20 Range/Units 06:50 AST (14-36) U/L Troponin I <0.012 (0.000-0.034) ng/mL Coagulation 10/18/20 10/18/20 Range/Units 00:15 08:37 PT 10.0 (9.0-12.0) sec APTT 25.5 65.2 H (22.0-30.0) sec CBC 10/18/20 10/18/20 Range/Units 00:15 05:35 WBC 5.0 (3.8-10.6) k/uL RBC 5.02 (3.80-5.40) m/uL Hgb 14.4 (11.4-16.0) gm/dL Hct 42.2 (34.0-46.0) % Plt Count 214 192 (150-450) k/uL Comprehensive Metabolic Panel 10/18/20 Range/Units 00:15 Sodium 140 (137-145) mmol/L Potassium 3.9 (3.5-5.1) mmol/L Chloride 108 H (98-107) mmol/L Carbon Dioxide 25 (22-30) mmol/L BUN 21 H (7-17) mg/dL Creatinine 1.30 H (0.52-1.04) mg/dL Glucose 121 H (74-99) mg/dL Calcium 9.3 (8.4-10.2) mg/dL AST 38 H (14-36) U/L ALT 35 H (4-34) U/L Alkaline Phosphatase 139 H (38-126) U/L Total Protein 7.5 (6.3-8.2) g/dL Albumin 4.1 (3.5-5.0) g/dL Current Medications Generic Name Dose Route Start Last Admin Trade Name Freq PRN Reason Stop Dose Admin Hydrocodone Bitart/Acetaminophen 1 each 10/18/20 09:00 10/18/20 12:00 Hydrocodone/Apap 10-325mg 1 Each Tab PO 1 each Q6H JAMMIE Administration Allopurinol 100 mg 10/18/20 15:00 Allopurinol 100 Mg Tab PO BID@1500,1900 JAMMIE Amlodipine Besylate 5 mg 10/18/20 09:00 10/18/20 12:00 Amlodipine 5 Mg Tab PO 5 mg BID JAMMIE Administration Aspirin 325 mg 10/19/20 09:00 Aspirin 325 Mg Tab PO DAILY JAMMIE Cholecalciferol 1,000 unit 10/18/20 09:00 10/18/20 12:00 Cholecalciferol 1,000 Unit Tab PO 1,000 unit DAILY JAMMIE Administration Clonazepam 0.5 mg 10/18/20 08:16 Clonazepam 0.5 Mg Tab PO TID PRN Anxiety Clopidogrel Bisulfate 75 mg 10/18/20 09:00 10/18/20 12:00 Clopidogrel 75 Mg Tab PO 75 mg DAILY JAMMIE Administration Colchicine 0.6 mg 10/18/20 09:00 10/18/20 12:00 Colchicine 0.6 Mg Each PO 0.6 mg DAILY JAMMIE Administration Furosemide 10 mg 10/18/20 09:00 10/18/20 12:00 Furosemide 20 Mg Tab PO 10 mg WEFR JAMMIE Administration Gabapentin 300 mg 10/18/20 09:00 10/18/20 11:59 Gabapentin 300 Mg Cap PO 300 mg Q6H JAMMIE Administration Heparin Sodium (Porcine) 0 unit 10/18/20 02:38 Heparin Sodium,Porcine 5,000 Unit/Ml 1 Ml Vial IV Q6HR PRN Low PTT Protocol Sodium Chloride 1,000 mls @ 20 mls/hr 10/18/20 02:45 10/18/20 03:11 Saline 0.9% IV 20 mls/hr .Q24H JAMMIE Administration Heparin Sodium/Sodium Chloride 250 mls @ 9.798 mls/hr 10/18/20 02:45 10/18/20 03:11 25,000 unit/ Sodium Chloride IV 12 units/kg/hr .Q24H JAMMIE 9.798 mls/hr Administration Protocol 12 UNITS/KG/HR Ipratropium [place] 0.5 mg 10/18/20 12:00 10/18/20 11:38 Ipratropium 0.5 Mg/2.5 Ml Nebu INHALATION 0.5 mg RT-QID JAMMIE Administration Levothyroxine Sodium 50 mcg 10/18/20 09:00 10/18/20 11:59 Levothyroxine 50 Mcg Tab PO 50 mcg 0630 JAMMIE Administration Metoprolol Tartrate 25 mg 10/18/20 09:00 10/18/20 12:03 Metoprolol Tartrate 25 Mg Tab PO Not Given BID JAMMIE Morphine Sulfate 4 mg 10/18/20 02:16 Morphine Sulfate 4 Mg/Ml Syringe IVP Q4HR PRN Pain Nitroglycerin 0.4 mg 10/18/20 02:38 Nitroglycerin Sl Tabs 0.4 Mg Tab SUBLINGUAL Q5M PRN Chest Pain Patient's Own ( 1 patch 10/18/20 09:00 10/18/20 12:02 Buprenorphine [ TOPICAL Not Given Butrans 10 Mcg/Hour] FR JAMMIE 10 Mcg/Hour Patch. Tdwk) Sertraline HCl 100 mg 10/18/20 09:00 10/18/20 11:59 Sertraline 100 Mg Tab PO 100 mg DAILY JAMMIE Administration Intake and Output 10/17/20 10/18/20 10/18/20 22:59 06:59 14:59 Other: Voiding Method Diaper Incontinent # Voids 1 Weight 81.647 kg 10/18/20 05:35 10/18/20 00:15
[2020-10-18] MEDS ORDERED: allopurinoL 100 MG TAB PO SCH (15:00)
[2020-10-18 15:35] VITALS: PULSE 58; RESP 16
[2020-10-18 16:53] VITALS: BP 130/80; TEMP 97.6
[2020-10-19] MEDS ORDERED: ASPIRIN 325 MG TAB PO SCH (09:00)
== END 2020-10-18 18:14 | disposition home or self-care (01) ==
LOC: EC 00:02 → 1SOBS 02:38
PROVIDERS: ADMIT Internal Medicine; ATTEND Internal Medicine
DX: R07.89 Other chest pain (principal); R11.0 Nausea; R61 Generalized hyperhidrosis; R06.00 Dyspnea, unspecified; R00.2 Palpitations; R68.84 Jaw pain; R41.0 Disorientation, unspecified; R41.82 Altered mental status, unspecified; I25.10 Atherosclerotic heart disease of native coronary artery without angina pectoris; I13.10 Hypertensive heart and chronic kidney disease without heart failure, with stage 1 through stage 4 chronic kidney disease, or unspecified chronic kidney disease; N18.31 Chronic kidney disease, stage 3a; E78.5 Hyperlipidemia, unspecified; E03.9 Hypothyroidism, unspecified; M10.9 Gout, unspecified; J44.9 Chronic obstructive pulmonary disease, unspecified; G25.81 Restless legs syndrome; F32.9 Major depressive disorder, single episode, unspecified; G89.4 Chronic pain syndrome; M47.896 Other spondylosis, lumbar region; I73.9 Peripheral vascular disease, unspecified; I25.2 Old myocardial infarction; M19.90 Unspecified osteoarthritis, unspecified site; M51.9 Unspecified thoracic, thoracolumbar and lumbosacral intervertebral disc disorder; R09.89 Other specified symptoms and signs involving the circulatory and respiratory systems; R60.0 Localized edema; I44.7 Left bundle-branch block, unspecified; F17.210 Nicotine dependence, cigarettes, uncomplicated; Z79.899 Other long term (current) drug therapy; Z79.02 Long term (current) use of antithrombotics/antiplatelets; Z79.891 Long term (current) use of opiate analgesic; Z79.890 Hormone replacement therapy; Z88.8 Allergy status to other drugs, medicaments and biological substances; Z86.73 Personal history of transient ischemic attack (TIA), and cerebral infarction without residual deficits; Z95.1 Presence of aortocoronary bypass graft; Z90.89 Acquired absence of other organs; Z95.820 Peripheral vascular angioplasty status with implants and grafts; Z86.010 Personal history of colon polyps; Z98.890 Other specified postprocedural states; Z98.61 Coronary angioplasty status; Z90.5 Acquired absence of kidney; Z87.448 Personal history of other diseases of urinary system; Z80.3 Family history of malignant neoplasm of breast; Z80.9 Family history of malignant neoplasm, unspecified
CPT/HCPCS: 96376; 96374; 96375; 99285; 36415; 94640; 93005; 83880; 80053; 83690; 83735; 84484; 85025; 85049; 85610; 85730; 71046; 76705; 70450; G0378; J2270; J1644 ×2

== ENCOUNTER 2021-03-16 12:11 | Inpatient (IN) | payer MEDICARE, BC ==
[2021-03-16] MEDS ORDERED: HYDROmorphone 0.5 MG/0.5 ML SYRINGE IVP STA (12:58)
[2021-03-16] MEDS ORDERED: SODIUM CHLORIDE 0.9% 500 ML 500 ML IV STA (12:59)
--- NOTE | 2021-03-16 13:01 | ED ---
General Adult HPI - General Chief complaint: Weakness Stated complaint: altered Time Seen by Provider: 03/16/21 12:23 Source: EMS Mode of arrival: EMS Limitations: no limitations - History of Present Illness Initial comments: Dictation was produced using [employer] dictation software. please excuse any grammatical, word or spelling errors. Chief Complaint: 80-year-old female brought in by daughter for generalized weakness and right upper extremity pain. History of Present Illness: Is an 80-year-old female she is accompanied by daughter. Patient's past medical history of coronary artery disease, COPD, stroke, hypertension. She's been evaluated by her primary care physician for right upper extremity pain in the ulnar distribution. She states that she has pain to her medial forearm and fourth and fifth digits. Primary care doctor ordered an MRI that is scheduled in approximately one week. Daughter notices that over the last couple days patient has been more lethargic and weak more than usual. Daughter and take care of patient reports having difficulty taking care patient due to her worsening weakness per she is usually able to function at least slightly. One example daughter gives is that typically patient is able to get to her bedside commode and stand however as of the last couple days she is unable to. When patient is asked why she was brought to the emergency department she states that it's because of her arm pain. The ROS documented in this emergency department record has been reviewed and confirmed by me. Those systems with pertinent positive or negative responses have been documented in the HPI. All other systems are other negative and/or noncontributory. PHYSICAL EXAM: General Impression: Alert and oriented x3, not in acute distress HEENT: Normocephalic atraumatic, extra-ocular movements intact, pupils equal and reactive to light bilaterally, dry mucous membranes Cardiovascular: Heart regular rate and rhythm Chest: Able to complete full sentences, no retractions, no tachypnea Abdomen: abdomen soft, non-tender, non-distended, no organomegaly Musculoskeletal: Pulses present and equal in all extremities, no peripheral edema Motor: no focal deficits noted Neurological: CN II-XII grossly intact, no focal motor or sensory deficits noted Skin: Intact with no visualized rashes Psych: Normal affect and mood ED course: 80-year-old female presents emergency department for generalized weakness and acute on chronic right upper extremity ulnar pain. As upon arrival shows 91% on room air cumbersome vital signs within acceptable limits. Patient not showing any signs of distress. Laboratory evaluation obtained. CBC unremarkable. Coag panel is negative. Metabolic panel is within patient's baseline. No signs of acute kidney injury, electrolyte derangement. No hyper ammonia levels. Urinalysis is negative per chest x-ray and computed tomography scan of the brain shows no acute processes. Given concern of patient's severe acutely presenting weakness I believe patient would benefit from observation admission. Case discussed with Dr. Young who is willing to accept patients care. EKG interpretation: Ventricular rate 69, sinus rhythm, NY interval 220, QRS 1:30, QTC 488. Left bundle branch block. No NY prolongation, no QTC prolongation, no ST or T-wave changes noted. EKG compared to 10/18/2020 showing no changes. Overall, this EKG is unremarkable - Related Data Home Medications Medication Instructions Recorded Confirmed Isosorbide Mononitrate ER [Imdur] 30 mg PO BID 07/24/15 10/18/20 Sertraline HCl 100 mg PO DAILY 07/24/15 10/18/20 Tiotropium 18 Mcg/Puff [Spiriva] 1 puff INHALATION RT-DAILY 07/24/15 10/18/20 clonazePAM [KlonoPIN] 0.5 mg PO TID PRN 08/13/15 10/18/20 Clopidogrel Bisulfate [Plavix] 75 mg PO DAILY 07/25/16 10/18/20 allopurinoL [Zyloprim] 100 mg PO BID 07/25/16 10/18/20 amLODIPine [Norvasc] 5 mg PO BID 07/25/16 10/18/20 Buprenorphine [Butrans 10 MCG/HOUR] 1 patch TRANSDERM FR 08/26/20 10/18/20 Cholecalciferol [Vitamin D3 (25 1,000 unit PO DAILY 08/26/20 10/18/20 Mcg = 1000 Iu)] Colchicine 0.6 mg PO DAILY 08/26/20 10/18/20 Furosemide [Lasix] 10 mg PO WEFR 08/26/20 10/18/20 HYDROcodone/APAP 10-325MG [[place] 1 tab PO Q6H 08/26/20 10/18/20 10-325] Levothyroxine Sodium [Synthroid] 50 mcg PO DAILY 08/26/20 10/18/20 Albuterol Inhaler [Ventolin Hfa 2 puff INHALATION RT-Q4H PRN 10/18/20 10/18/20 Inhaler] Baclofen 10 mg PO BID PRN 10/18/20 10/18/20 Previous Rx's Medication Instructions Recorded Metoprolol Tartrate [Lopressor] 25 mg PO BID #60 tab 08/21/15 Nitroglycerin Sl Tabs [Nitrostat] 0.4 mg SUBLINGUAL Q5M PRN #25 tab 08/21/15 Allergies Allergy/AdvReac Type Severity Reaction Status Date / Time hydralazine Allergy Rash/Hives Verified 03/16/21 12:14 Wtygsvy-Wrq-Auk Reductase AdvReac Unknown Verified 03/16/21 12:14 Inhibitor zolpidem [From Ambien] AdvReac Unknown Verified 03/16/21 12:14 Review of Systems ROS Statement: Those systems with pertinent positive or pertinent negative responses have been documented in the HPI. ROS Other: All systems not noted in ROS Statement are negative. 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 . Last Myocardial Infarction Date:: 2009 History of Any Multi-Drug Resistant Organisms: None Reported Past Surgical History: Coronary Bypass/CABG, Tonsillectomy Additional Past Surgical History / Comment(s): 2010 Cabg-3 vessel, Bilateral FEMEROL ARTERY STENTs about 10 yrs ago. RIGHT CAROTID ENDARTECTOMY, colonoscopy with benign polypectomy. Past Anesthesia/Blood Transfusion Reactions: No Reported Reaction Additional Past Anesthesia/Blood Transfusion Reaction / Comment(s): Pt believes she recieved blood with CABG-no reaction recalled. Past Psychological History: Depression Smoking Status: Former smoker Past Alcohol Use History: None Reported Past Drug Use History: None Reported - Past Family History Mother Family Medical History: Cancer Additional Family Medical History / Comment(s): BREAST with mets- at 67 yrs of age. Father History Unknown: Yes General Exam Limitations: no limitations Course Vital Signs 03/16/21 03/16/21 03/16/21 12:15 13:04 13:46 Temperature 98.5 F 97.5 F L Pulse Rate 67 75 71 Respiratory 16 16 20 Rate Blood Pressure 138/64 126/68 131/72 O2 Sat by Pulse 91 L 95 95 Oximetry Medical Decision Making - Lab Data Result diagrams: 03/16/21 12:37 03/16/21 12:37 Lab Results 03/16/21 03/16/21 03/16/21 Range/Units 12:37 12:37 12:37 WBC 5.0 (3.8-10.6) k/uL RBC 4.69 (3.80-5.40) m/uL Hgb 13.1 (11.4-16.0) gm/dL Hct 38.4 (34.0-46.0) % MCV 81.8 (80.0-100.0) fL MCH 27.9 (25.0-35.0) pg MCHC 34.2 (31.0-37.0) g/dL RDW 16.8 H (11.5-15.5) % Plt Count 122 L (150-450) k/uL MPV 7.5 Neutrophils % 54 % Lymphocytes % 37 % Monocytes % 5 % Eosinophils % 2 % Basophils % 0 % Neutrophils # 2.7 (1.3-7.7) k/uL Lymphocytes # 1.9 (1.0-4.8) k/uL Monocytes # 0.3 (0-1.0) k/uL Eosinophils # 0.1 (0-0.7) k/uL Basophils # 0.0 (0-0.2) k/uL Anisocytosis Slight PT (9.0-12.0) sec INR (<1.2) APTT (22.0-30.0) sec Sodium 137 (137-145) mmol/L Potassium 3.8 (3.5-5.1) mmol/L Chloride 110 H (98-107) mmol/L Carbon Dioxide 24 (22-30) mmol/L Anion Gap 3 mmol/L BUN 18 H (7-17) mg/dL Creatinine 1.21 H (0.52-1.04) mg/dL Est GFR (CKD-EPI)AfAm 48 (>60 ml/min/1.73 sqM) Est GFR (CKD-EPI)NonAf 42 (>60 ml/min/1.73 sqM) Glucose 115 H (74-99) mg/dL Calcium 8.1 L (8.4-10.2) mg/dL Magnesium 1.6 (1.6-2.3) mg/dL Total Bilirubin 0.9 (0.2-1.3) mg/dL AST 45 H (14-36) U/L ALT 38 H (4-34) U/L Alkaline Phosphatase 120 (38-126) U/L Ammonia 12 (<30) umol/L Troponin I (0.000-0.034) ng/mL Total Protein 5.8 L (6.3-8.2) g/dL Albumin 3.2 L (3.5-5.0) g/dL TSH 0.840 (0.465-4.680) mIU/L Urine Color Urine Appearance (Clear) Urine pH (5.0-8.0) Ur Specific [place] (1.001-1.035) Urine Protein (Negative) Urine Glucose (UA) (Negative) Urine Ketones (Negative) Urine Blood (Negative) Urine Nitrite (Negative) Urine Bilirubin (Negative) Urine Urobilinogen (<2.0) mg/dL Ur Leukocyte Esterase (Negative) Urine RBC (0-5) /hpf Urine WBC (0-5) /hpf Ur Squamous Epith Cells (0-4) /hpf Urine Mucus (None) /hpf 03/16/21 03/16/21 03/16/21 Range/Units 12:37 12:37 12:37 WBC (3.8-10.6) k/uL RBC (3.80-5.40) m/uL Hgb (11.4-16.0) gm/dL Hct (34.0-46.0) % MCV (80.0-100.0) fL MCH (25.0-35.0) pg MCHC (31.0-37.0) g/dL RDW (11.5-15.5) % Plt Count (150-450) k/uL MPV Neutrophils % % Lymphocytes % % Monocytes % % Eosinophils % % Basophils % % Neutrophils # (1.3-7.7) k/uL Lymphocytes # (1.0-4.8) k/uL Monocytes # (0-1.0) k/uL Eosinophils # (0-0.7) k/uL Basophils # (0-0.2) k/uL Anisocytosis PT 10.4 (9.0-12.0) sec INR 1.0 (<1.2) APTT 25.8 (22.0-30.0) sec Sodium (137-145) mmol/L Potassium (3.5-5.1) mmol/L Chloride (98-107) mmol/L Carbon Dioxide (22-30) mmol/L Anion Gap mmol/L BUN (7-17) mg/dL Creatinine (0.52-1.04) mg/dL Est GFR (CKD-EPI)AfAm (>60 ml/min/1.73 sqM) Est GFR (CKD-EPI)NonAf (>60 ml/min/1.73 sqM) Glucose (74-99) mg/dL Calcium (8.4-10.2) mg/dL Magnesium (1.6-2.3) mg/dL Total Bilirubin (0.2-1.3) mg/dL AST (14-36) U/L ALT (4-34) U/L Alkaline Phosphatase (38-126) U/L Ammonia (<30) umol/L Troponin I <0.012 (0.000-0.034) ng/mL Total Protein (6.3-8.2) g/dL Albumin (3.5-5.0) g/dL TSH (0.465-4.680) mIU/L Urine Color Yellow Urine Appearance Clear (Clear) Urine pH 5.5 (5.0-8.0) Ur Specific [place] 1.019 (1.001-1.035) Urine Protein 1+ H (Negative) Urine Glucose (UA) Negative (Negative) Urine Ketones Negative (Negative) Urine Blood Negative (Negative) Urine Nitrite Negative (Negative) Urine Bilirubin Negative (Negative) Urine Urobilinogen 2.0 (<2.0) mg/dL Ur Leukocyte Esterase Negative (Negative) Urine RBC <1 (0-5) /hpf Urine WBC 1 (0-5) /hpf Ur Squamous Epith Cells <1 (0-4) /hpf Urine Mucus Rare H (None) /hpf Disposition Clinical Impression: Weakness Disposition: ADMITTED IP TO THIS [facility] Condition: Fair Referrals: Emilie Young MD [Primary Care Provider] - 1-2 days
[2021-03-16 13:09] LABS: Anisocytosis Slight; Basophils % (A) 0 %; Eosinophils # (A) 0.1 k/uL (0-0.7); Eosinophils % (A) 2 %; HCT 38.4 % (34.0-46.0); HGB 13.1 gm/dL (11.4-16.0); Lymphocytes # (A) 1.9 k/uL (1.0-4.8); Lymphocytes % (A) 37 %; MCH 27.9 pg (25.0-35.0); MCHC 34.2 g/dL (31.0-37.0); MCV 81.8 fL (80.0-100.0); Mean Platelet Volume 7.5; Monocytes # (A) 0.3 k/uL (0-1.0); Monocytes % (A) 5 %; Neutrophils # (A) 2.7 k/uL (1.3-7.7); Neutrophils % (A) 54 %; Platelet Count 122 k/uL (150-450); RBC 4.69 m/uL (3.80-5.40); RDW 16.8 % (11.5-15.5)
[2021-03-16 13:18] LABS: Partial Thromboplastin Time 25.8 sec (22.0-30.0); Prothrombin Time 10.4 sec (9.0-12.0)
[2021-03-16 13:25] LABS: Albumin 3.2 g/dL (3.5-5.0); Calcium 8.1 mg/dL (8.4-10.2); Magnesium 1.6 mg/dL (1.6-2.3); Potassium 3.8 mmol/L (3.5-5.1); Total Bilirubin 0.9 mg/dL (0.2-1.3); Total Protein 5.8 g/dL (6.3-8.2)
[2021-03-16 13:26] LABS: Appearance,Urine Clear (Clear); Bilirubin,Urine Negative (Negative); Blood,Urine Negative (Negative); Color,Urine Yellow; Glucose,Urine (UA) Negative (Negative); Ketones,Urine Negative (Negative); Leukocyte Esterase,Urine Negative (Negative); Mucus,Urine Rare /hpf; Nitrite,Urine Negative (Negative); PH, Urine 5.5 (5.0-8.0); Protein,Urine 1+ (Negative); RBC,Urine <1 /hpf (0-5); Specific Gravity,Urine 1.019 (1.001-1.035); Squamous Epithelial Cell,Urine <1 /hpf (0-4); WBC,Urine 1 /hpf (0-5)
--- NOTE | 2021-03-16 13:45 | CT ---
EXAMINATION TYPE: CT brain cspine wo con DATE OF EXAM: 03/16/2021 COMPARISON: CT brain October 18, 2020 HISTORY: Fall injury 2 days ago with altered mental status and neck pain. CT DLP: 957.8 mGycm. Automated Exposure Control for Dose Reduction was Utilized. TECHNIQUE: CT scan of the head and cervical spine are performed without contrast. FINDINGS: There is no acute intracranial hemorrhage or midline shift identified. Persistent CSF pro minence over bilateral frontal lobes consistent with moderate to severe atrophy and/or chronic subdur al hygromas. Moderate bilateral temporal lobe atrophy redemonstrated. No hydrocephalus. The calvarium is intact. The globes are intact and the visualized sinuses are clear. There is 9 mm subcutaneous l esion over the right frontal sinus axial image 21 presumed benign unchanged from prior. Cervical spine is visualized in its entirety from C1 through upper thoracic levels and demonstrates d emineralization without evidence of acute fracture or dislocation. Prevertebral soft tissue appears within normal limits. The C1-C2 articulation is within normal limits on the coronal images. Moderate disc space narrowing C4-C5 level. Posterior spurring effacing anterior thecal sac at C4-C5 level. Ax ial images show multilevel uncovertebral facet degenerative changes bilaterally. Right thyroid hypode nse nodules approach 1.0 cm extension with extrathyroidal extension of the posterior inferior nodule noted, nonemergent follow-up advised. IMPRESSION: 1. There is no acute fracture or dislocation evident in the cervical spine. 2. No acute intracranial hemorrhage or midline shift is seen. Frontotemporal lobe atrophy redemonstra freddie.
--- NOTE | 2021-03-16 13:50 | XR ---
EXAMINATION TYPE: XR chest 1V portable DATE OF EXAM: 03/16/2021 COMPARISON: Chest x-ray October 18, 2020 HISTORY: Altered mental status and weakness. TECHNIQUE: Single frontal view of the chest is obtained. FINDINGS: Elevated left hemidiaphragm. Overlying sternal wires and mediastinal clips. There are chron ic parenchymal changes without suspicious new focal air space opacity, pleural effusion, or pneumotho rax seen. Persistent cardiomegaly with atherosclerotic aorta. The osseous structures remain deminer alized. IMPRESSION: Cardiomegaly and chronic changes without acute pulmonary process. No significant change from prior.
[2021-03-16] MEDS ORDERED: NALOXONE 0.4 MG/ML 1 ML VIAL IV PRN (13:56)
[2021-03-16] MEDS ORDERED: ACETAMINOPHEN TAB 325 MG TAB PO PRN (13:56)
[2021-03-16] MEDS ORDERED: ONDANSETRON 4 MG/2 ML VIAL IVP PRN (13:56)
[2021-03-16] MEDS: SODIUM CHLORIDE 0.9% 1,000 ML IV SCH (16:02)
[2021-03-16] MEDS: HYDROmorphone 0.5 MG/0.5 ML SYRINGE IVP PRN ×2 (16:51→20:57)
[2021-03-16] MEDS ORDERED: NITROGLYCERIN SL TABS 0.4 MG TAB SUBLINGUAL PRN (19:40)
[2021-03-16] MEDS ORDERED: BUTALB/APAP/CAFF 50-325-40MG TAB PO PRN (19:40)
[2021-03-16] MEDS: allopurinoL 100 MG TAB PO SCH (20:41)
[2021-03-16] MEDS: ISOSORBIDE MONONITRATE ER 30 MG TAB.ER.24H PO SCH (20:41)
[2021-03-16] MEDS: PREGABALIN 75 MG CAP PO SCH (20:41)
[2021-03-16] MEDS: METOPROLOL TARTRATE 25 MG TAB PO SCH (20:41)
[2021-03-16] MEDS: amLODIPine 5 MG TAB PO SCH (20:42)
[2021-03-16] MEDS: BELBUCA 300 MCG MUCOUS MEM SCH (20:42)
[2021-03-16] MEDS: clonazePAM 0.5 MG TAB PO PRN (20:47)
[2021-03-17] MEDS: SODIUM CHLORIDE 0.9% 1,000 ML IV SCH ×3 (05:16→22:39)
[2021-03-17] MEDS: HYDROmorphone 0.5 MG/0.5 ML SYRINGE IVP PRN ×2 (05:58→19:07)
[2021-03-17] MEDS: LEVOTHYROXINE 50 MCG TAB PO SCH (05:58)
[2021-03-17] MEDS: clonazePAM 0.5 MG TAB PO PRN ×2 (05:58→13:54)
[2021-03-17] MEDS ORDERED: LEVOTHYROXINE 50 MCG TAB PO SCH (06:30)
[2021-03-17] MEDS ORDERED: IPRATROPIUM 0.5 MG/2.5 ML NEBU INHALATION SCH (08:00)
[2021-03-17] MEDS: allopurinoL 100 MG TAB PO SCH ×2 (09:39→20:57)
[2021-03-17] MEDS: amLODIPine 5 MG TAB PO SCH ×2 (09:39→20:57)
[2021-03-17] MEDS: ISOSORBIDE MONONITRATE ER 30 MG TAB.ER.24H PO SCH ×2 (09:40→20:57)
[2021-03-17] MEDS: CLOPIDOGREL 75 MG TAB PO SCH (09:40)
[2021-03-17] MEDS: COLCHICINE 0.6 MG EACH PO SCH (09:40)
[2021-03-17] MEDS: METOPROLOL TARTRATE 25 MG TAB PO SCH ×2 (09:40→20:57)
[2021-03-17] MEDS: BELBUCA 300 MCG MUCOUS MEM SCH ×2 (09:40→20:58)
[2021-03-17] MEDS: PREGABALIN 75 MG CAP PO SCH ×3 (09:41→22:35)
[2021-03-17] MEDS: SERTRALINE 100 MG TAB PO SCH (09:41)
[2021-03-17] MEDS: TIOTROPIUM 2.5 MCG INHALER INHALATION SCH (11:45)
--- NOTE | 2021-03-17 11:59 | P.HPIM ---
History of Present Illness H&P Date: 03/17/21 Chief Complaint: Weakness HISTORY OF PRESENT ILLNESS This is an 80-year-old female patient of Dr. 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 Patient complains of increased fatigue over the weekend starting on Wednesday. Her daughter states that she was sleeping all day long. She was having increased weakness and normally can stand and move to bed to a chair but could not stand over the weekend almost was falling over. She was having some trouble chewing and she took her medications with Ensure. Patient complains of neck pain and all over generalized body aches. Pain is a #10 on a 10. She denies having chest pain. Patient complains of headache. She has had no nausea or vomiting but decreased appetite. Her last bowel movement was yesterday which was normal and she is on chronic MiraLAX. She has been worked up for spondylosis of the cervical spine and is scheduled for MRI of the neck on March 22. Daughter let her sleep at all during the day on Wednesday but on Wednesday morning she still continued to have weakness and fatigue and she decided to bring her in the hospital for evaluation. Patient was afebrile, heart rate 67, blood pressure 138/64, pulse ox 91%. EKG was sinus rhythm with left bundle branch block and no acute ST changes. Hemoglobin 13.1, WBC 5, platelet count 122. Sodium 137, potassium 3.8, chloride 110, CO2 24, BUN 18 and creatinine 1.21. Blood sugar 115. Magnesium 1.6. Total bilirubin 0.9, AST 45, ALT 38, alkaline phosphatase 120. Ammonia level XII. TSH 0.840. INR 1.0. Troponin negative. Urinalysis negative for infection. Chest x-ray showed no acute cardiopulmonary findings. CAT scan of the brain and cervical spine revealed no acute fracture or dislocation in the cervical spine. No acute intracranial hemorrhage or midline shift. Frontotemporal lobe atrophy redemonstrated compared to study from September 2020. REVIEW OF SYSTEMS Constitutional: No fever, no chills, no night sweats. No weight change. Reports weakness, Reports fatigue Reports lethargy. Reports daytime sleepiness. Reports generalized pain. EENT: Reports headache. No blurred vision or double vision, no loss of vision. No loss of Hearing, no ringing in the ears, no dizziness. No nasal drainage or congestion. No epistaxis. No sore throat. Lungs: No shortness of breath, cough, no sputum production. No wheezing. Cardiovascular: No chest pain, no lower extremity edema. No palpitations. No paroxysmal nocturnal dyspnea. No orthopnea. No lightheadedness or dizziness. No syncopal episodes. Abdominal: No abdominal pain. No nausea, vomiting. No diarrhea. No constipat ion. No bloody or tarry stools. Reports loss of appetite. Genitourinary: No dysuria, increased frequency, urgency. No urinary retention. Musculoskeletal: No myalgias. Reports muscle weakness, Reports gait dysfunction, no frequent falls. No back pain. Reports neck pain. Integumentary: No wounds, no lesions. No rash or pruritus. No unusual bruising. No change in hair or nails. Neurologic: No aphasia. No facial droop. No change in mentation. No head injury. No headache. No paralysis. No paresthesia. Psychiatric: No depression. No anxiety. Endocrine: No abnormal blood sugars. MEDICAL HISTORY Essential hypertension Hyperlipidemia Coronary artery disease Peripheral artery disease Chronic kidney disease stage III with single kidney Idiopathic gout Hypothyroidism Restless leg syndrome Urinary incontinence Spondylosis of the cervical spine with myelopathy SURGICAL HISTORY Three-vessel CABG in 2009 Bilateral femoral artery stents Right carotid endarterectomy Partial hysterectomy Colonoscopy with benign polypectomy Tonsillectomy. SOCIAL HISTORY Patient was smoker of a half a pack per day and quit 15 years ago. No alcohol abuse or illicit drug use. Patient resides with her daughter and has a rolling walker with a seat.. FAMILY HISTORY Father at age 67 from myocardial infarction. Mother at age 67 from breast cancer with brain metastasis. Patient has a total of 5 sisters and one is from IV drug use, one from pedestrian motor vehicle accident, one formed vascular disease in her legs. One is okay with osteoarthritis. Patient has one son alive with heart murmur. Patient habitus 5 daughters with no major medical problems. PHYSICAL EXAMINATION Gen: This is an 80-year-old female. Patient is resting in bed and appears to be comfortable although she stating pain is 10/10. HEENT: Head is atraumatic, normocephalic. Pupils equal, round. Sclerae is anicteric. NECK: Supple. No JVD. No lymphadenopathy. No thyromegaly. LUNGS: Few scattered rhonchi. No intercostal retractions. No accessory muscle usage. HEART: First heart sound is depressed, second heart sound is normal. 2/6 systolic ejection murmur at the left sternal border. ABDOMEN: Soft. Bowel sounds are present. No masses. No tenderness. Soft v entral hernia. EXTREMITIES: No pedal edema. No calf tenderness. Dorsalis pedis +1 bilaterally. NEUROLOGICAL: Patient is awake, alert and oriented x3. Cranial nerves 2 through 12 are grossly intact. Right arm weakness, bilateral lower extremity weakness. ASSESSMENT AND PLAN 1. Generalized weakness and right upper extremity pain and weakness with history of spondylosis of the cervical spine. MRI of the cervical spine, consult with neurology. consult with PT and OT. Continue Lyrica 150 mg 3 times daily, [place]way[place] 7.5mg as needed for pain, Dilaudid for breakthrough pain, continue Belbuca 300mg twice daily. 2. Hyperlipidemia. 3. History of coronary artery disease. Continue Imdur 30 mg twice daily, Lopressor 25 mg twice daily, Nitrostat as needed. 4. Peripheral artery disease status post stent bilateral from oral. Continue Plavix 75 mg daily. 5. Phronic kidney disease stage III with single kidney. Avoid nephrotoxic agents. 6. Hypertension. Continue amlodipine 5 mg twice daily. 7. Chronic gout. Continue allopurinol 100 mg twice daily, colchicine 0.6 mg daily 8. Hypothyroidism. Continue levothyroxine 50 g daily. 9. Restless leg syndrome, stable, continue clonazepam 0.5 mg 3 times daily as needed. 10. Headache. Continue Fioricet 1 every 4 hours as needed. 11. COPD without exacerbation. Continue Spiriva 1 puff daily. 12. Urinary incontinence. 13. Recurrent depression. Continue sertraline 100 mg daily and continue clonazepam 0.5 mg 3 times daily as needed. 14. GI prophylaxis. Protonix. 15. DVT prophylaxis. Heparin subcu 16. COVID-19 testing negative. Patient has been hospitalized during a pandemic. Patient will be admitted to the hospital for a minimum of 2 night stay. DISCHARGE PLAN TBD. Impression and plan of care have been directed as dictated by the signing physician. Lucretia Ordaz nurse practitioner acting as scribe for signing physician. Past Medical History Past Medical History: Coronary Artery Disease (CAD), Chest Pain / Angina, COPD, CVA/TIA, Hyperlipidemia, Hypertension, Myocardial Infarction ([place]), Myocardial Infarction (non Q-wave), Musculoskeletal Disorder, Osteoarthritis (OA), Renal Disease, Thyroid Disorder, Vascular Disorder Additional Past Medical History / Comment(s): Other HX: Solitary kidney (L kidney nonfunctioning), PVD, TIA, vertigo, GOUT bilateral feet toes and R thumb, CHRONIC LUMBAR BACK PAIN, heniated discs. . Last Myocardial Infarction Date:: 2009 History of Any Multi-Drug Resistant Organisms: None Reported Past Surgical History: Coronary Bypass/CABG, Tonsillectomy Additional Past Surgical History / Comment(s): 2010 Cabg-3 vessel, Bilateral FEMEROL ARTERY STENTs about 10 yrs ago. RIGHT CAROTID ENDARTECTOMY, colonoscopy with benign polypectomy. Past Anesthesia/Blood Transfusion Reactions: No Reported Reaction Additional Past Anesthesia/Blood Transfusion Reaction / Comment(s): Pt believes she recieved blood with CABG-no reaction recalled. Past Psychological History: Depression Additional Psychological History / Comment(s): Pt resides with daughter for 3 years. She also has a rolling walker with a seat. Smoking Status: Former smoker Past Alcohol Use History: None Reported Additional Past Alcohol Use History / Comment(s): Pt states she smokes about 1/2 ppd. She started smoking at age 12yrs. Past Drug Use History: None Reported - Past Family History Mother Family Medical History: Cancer Additional Family Medical History / Comment(s): BREAST with mets- at 67 yrs of age. Father History Unknown: Yes Medications and Allergies Home Medications Medication Instructions Recorded Confirmed Type Isosorbide Mononitrate ER [Imdur] 30 mg PO BID 07/24/15 03/16/21 History Sertraline HCl 100 mg PO DAILY 07/24/15 03/16/21 History Tiotropium 18 Mcg/Puff [Spiriva] 1 puff INHALATION RT-DAILY 07/24/15 03/16/21 History clonazePAM [KlonoPIN] 0.5 mg PO TID PRN 08/13/15 03/16/21 History Metoprolol Tartrate [Lopressor] 25 mg PO BID #60 tab 08/21/15 03/16/21 Rx Nitroglycerin Sl Tabs [Nitrostat] 0.4 mg SUBLINGUAL Q5M PRN #25 tab 08/21/15 03/16/21 Rx Clopidogrel Bisulfate [Plavix] 75 mg PO DAILY 07/25/16 03/16/21 History allopurinoL [Zyloprim] 100 mg PO BID 07/25/16 03/16/21 History amLODIPine [Norvasc] 5 mg PO BID 07/25/16 03/16/21 History Colchicine 0.6 mg PO DAILY 08/26/20 03/16/21 History Levothyroxine Sodium [Synthroid] 50 mcg PO DAILY 08/26/20 03/16/21 History Buprenorphine HCl [Belbuca] 300 mcg BC BID 03/16/21 03/16/21 History Butalb/APAP/Caff 50-325-40Mg 1 tab PO Q4H PRN 03/16/21 03/16/21 History [Fioricet 50-325-40] HYDROcodone/APAP 7.5-325MG [[place] 1 tab PO QID PRN 03/16/21 03/16/21 History 7.5-325] Pregabalin [Lyrica] 150 mg PO TID 03/16/21 03/16/21 History Allergies Allergy/AdvReac Type Severity Reaction Status Date / Time hydralazine Allergy Rash/Hives Verified 03/16/21 14:15 [id number] Reductase AdvReac Unknown Verified 03/16/21 14:15 Inhibitor zolpidem [From Ambien] AdvReac Unknown Verified 03/16/21 14:15 Physical Exam Vitals: Vital Signs Temp Pulse Pulse Resp BP BP Pulse Ox 03/17/21 02:00 97.4 F L 62 16 152/74 99 03/16/21 20:00 97.8 F 69 16 153/78 100 03/16/21 17:11 67 18 163/81 98 03/16/21 16:01 66 18 140/74 97 03/16/21 13:46 97.5 F L 71 20 131/72 95 03/16/21 13:04 75 16 126/68 95 03/16/21 12:15 98.5 F 67 16 138/64 91 L Intake and Output 03/16/21 03/17/21 03/17/21 22:59 06:59 14:59 Other: Voiding Method Bedside Commode # Voids 2 Weight 74.843 kg Results CBC & Chem 7: 03/16/21 12:37 03/16/21 12:37 Labs: Abnormal Lab Results - Last 24 Hours (Table) 03/16/21 03/16/21 03/16/21 Range/Units 12:37 12:37 12:37 RDW 16.8 H (11.5-15.5) % Plt Count 122 L (150-450) k/uL Chloride 110 H (98-107) mmol/L BUN 18 H (7-17) mg/dL Creatinine 1.21 H (0.52-1.04) mg/dL Glucose 115 H (74-99) mg/dL Calcium 8.1 L (8.4-10.2) mg/dL AST 45 H (14-36) U/L ALT 38 H (4-34) U/L Total Protein 5.8 L (6.3-8.2) g/dL Albumin 3.2 L (3.5-5.0) g/dL Urine Protein 1+ H (Negative) Urine Mucus Rare H (None) /hpf Thrombosis Risk Factor Assmnt - Choose All That Apply Any of the Below Risk Factors Present?: No Each Risk Factor Represents 2 Points: Malignancy Each Risk Factor Represents 3 Points: Age 75 years or older Thrombosis Risk Factor Assessment Total Risk Factor Score: 5 Thrombosis Risk Factor Assessment Level: High Risk
--- NOTE | 2021-03-17 13:27 | P.CNNES ---
History of Present Illness Consult date: 03/17/21 Requesting physician: Lucretia Ordaz Reason for Consult: neck pain and right arm weakness with pain. History of Present Illness: This is an 80-year-old woman with medical history of right carotid endarterectomy, cervical myelopathy, urinary incontinence restless leg syndrome, chronic kidney disease stage III, hypertension, hyperlipidemia, coronary artery disease status post CABG, peripheral artery disease status post femoral stent who presented to the emergency department on 03/16/2021 for generalized weakness and right upper extremity pain she was complaining of pain and the right ulnar distribution and pain in the medial forearm and the fourth and fifth digits. According to the patient's daughter was at bedside she stated that the patient the has been more weak than her baseline. She stated that the patient needs assistance to get around but the last couple days the was even difficult to get her on her feet. And she felt that the patient had altered mentation for the last couple days but feels her mentation is improved today. She said that patient the baseline mentation is alert oriented 3. Patient does have urinary incontinence for last month According to the patient daughter the patient has having difficulty walking for the at least 5 years initially using a cane and walker then requirin g support to get around with minimally walking but recently having difficulty walking. The patient complains of right neck pain radiating down all the way to the elbow to the fourth and fifth digits of the right hand and it's been going on recently but unsure for how long. He also has numbness tingling that is the from the medial elbow all the way down to the fourth and fifth digit of the right hand. Patient stated that she has numbness and tingling from the the distal knee all the way down and it's been going on for last couple months. Patient denies any history of the ischemic stroke. Denies any history of seizure. Patient home medication is the R, 150 mg 1 tablet 3 times a day at. A ccording to patient she is on gabapentin but I don't see as her home medication. Some of the workup in the hospital consisted of: Initial vital signs: Blood pressure of 138/64, heart rate of 67, respiratory of 16, temperature of 98.5 Fahrenheit oral and pulse ox of 91% at room air at. CT of the head is reported as no acute intracranial hemorrhage or midline shift is seen. Frontal temporal lobe atrophy redemonstrated. I personally reviewed the CT of the head and I felt patient had bilateral frontal moderate). CT of the neck is reported as there is no acute fracture or dislocation evident in the cervical spine. Start the patient had cervical spondylosis over the C4- C5 region which seems moderate in severity. Patient white blood cells 5.0 which is normal. The platelet count is 122 which is low. In the RDW is 16.8. The BUN is 18 and the creatinine is 1.21. AST is 45 and the ALT is 38. TSH is 0.840 which is normal. Review of Systems Review of system: The 12 point system was reviewed and apparent positive and negative per HPI. Past Medical History Past Medical History: Coronary Artery Disease (CAD), Chest Pain / Angina, COPD, CVA/TIA, Hyperlipidemia, Hypertension, Myocardial Infarction ([place]), Myocardial Infarction (non Q-wave), Musculoskeletal Disorder, Osteoarthritis (OA), Renal Disease, Thyroid Disorder, Vascular Disorder Additional Past Medical History / Comment(s): Other HX: Solitary kidney (L kidney nonfunctioning), PVD, TIA, vertigo, GOUT bilateral feet toes and R thumb, CHRONIC LUMBAR BACK PAIN, heniated discs. . Last Myocardial Infarction Date:: 2009 History of Any Multi-Drug Resistant Organisms: None Reported Past Surgical History: Coronary Bypass/CABG, Tonsillectomy Additional Past Surgical History / Comment(s): 2010 Cabg-3 vessel, Bilateral FEMEROL ARTERY STENTs about 10 yrs ago. RIGHT CAROTID ENDARTECTOMY, colonoscopy with benign polypectomy. Past Anesthesia/Blood Transfusion Reactions: No Reported Reaction Additional Past Anesthesia/Blood Transfusion Reaction / Comment(s): Pt believes she recieved blood with CABG-no reaction recalled. Past Psychological History: Depression Additional Psychological History / Comment(s): Pt resides with daughter for 3 years. She also has a rolling walker with a seat. Smoking Status: Former smoker Past Alcohol Use History: None Reported Additional Past Alcohol Use History / Comment(s): Pt states she smokes about 1/2 ppd. She started smoking at age 12yrs. Past Drug Use History: None Reported - Past Family History Mother Family Medical History: Cancer Additional Family Medical History / Comment(s): BREAST with mets- at 67 yrs of age. Father History Unknown: Yes Medications and Allergies Home Medications Medication Instructions Recorded Confirmed Type Isosorbide Mononitrate ER [Imdur] 30 mg PO BID 07/24/15 03/16/21 History Sertraline HCl 100 mg PO DAILY 07/24/15 03/16/21 History Tiotropium 18 Mcg/Puff [Spiriva] 1 puff INHALATION RT-DAILY 07/24/15 03/16/21 History clonazePAM [KlonoPIN] 0.5 mg PO TID PRN 08/13/15 03/16/21 History Metoprolol Tartrate [Lopressor] 25 mg PO BID #60 tab 08/21/15 03/16/21 Rx Nitroglycerin Sl Tabs [Nitrostat] 0.4 mg SUBLINGUAL Q5M PRN #25 tab 08/21/15 03/16/21 Rx Clopidogrel Bisulfate [Plavix] 75 mg PO DAILY 07/25/16 03/16/21 History allopurinoL [Zyloprim] 100 mg PO BID 07/25/16 03/16/21 History amLODIPine [Norvasc] 5 mg PO BID 07/25/16 03/16/21 History Colchicine 0.6 mg PO DAILY 08/26/20 03/16/21 History Levothyroxine Sodium [Synthroid] 50 mcg PO DAILY 08/26/20 03/16/21 History Buprenorphine HCl [Belbuca] 300 mcg BC BID 03/16/21 03/16/21 History Butalb/APAP/Caff 50-325-40Mg 1 tab PO Q4H PRN 03/16/21 03/16/21 History [Fioricet 50-325-40] HYDROcodone/APAP 7.5-325MG [[place] 1 tab PO QID PRN 03/16/21 03/16/21 History 7.5-325] Pregabalin [Lyrica] 150 mg PO TID 03/16/21 03/16/21 History Allergies Allergy/AdvReac Type Severity Reaction Status Date / Time hydralazine Allergy Rash/Hives Verified 03/16/21 14:15 [id number]-Fcu Reductase AdvReac Unknown Verified 03/16/21 14:15 Inhibitor zolpidem [From Ambien] AdvReac Unknown Verified 03/16/21 14:15 Physical Examination - Vital Signs Vital Signs: Vital Signs Temp Pulse Pulse Resp BP BP Pulse Ox 03/17/21 02:00 97.4 F L 62 16 152/74 99 03/16/21 20:00 97.8 F 69 16 153/78 100 03/16/21 17:11 67 18 163/81 98 03/16/21 16:01 66 18 140/74 97 03/16/21 13:46 97.5 F L 71 20 131/72 95 03/16/21 13:04 75 16 126/68 95 Intake and Output 03/16/21 03/17/21 03/17/21 22:59 06:59 14:59 Other: Voiding Method Bedside Commode # Voids 2 1 Weight 74.843 kg GENERAL: The patient is lying in bed and is not in acute distress. CHEST: The heart rate is regular rate rhythm. No murmurs to auscultation. No carotid bruit bilaterally. LUNG: Clear to auscultation bilaterally no wheezing noted throughout. Not labored breathing. ABDOMEN/GI: Bowel sounds present in all 4 quadrants. No tenderness to palpation throughout. NEUROLOGICAL: Higher mental function: The patient is awake, alert, oriented to self. She stated she was in the hospital and with option chose the correct hospital. She stated the month was March and on repeated she stated it was February. The year she stated was 2002. Patient is following commands. No aphasia and no neglect. Cranial nerves: The pupils are round, equal and reactive to light. Visual mari are full to confrontation throughout. Extraocular movement is intact no nystagmus is noted. Facial sensation is normal to touch throughout. The facial strength is normal throughout. Hearing is moderately decreased bilaterally to hand rub. Tongue is midline and moved [id number] without any difficulty. No dysarthria is noted. Motor: Gait is deferred because of pain. The strength is moving bilateral upper extremities above gravity without drift but limited because of pain. Hard time assessing lower extremities since patient was in pain. Normal tone and bulk. Sensation: Decrease to touch over the right entire 4th and 5th digits and had decrease sensation to distal knees up to tips of toes bilaterally. Reflexes (right/left): 2+ throughout upper and 1+ in lowers Plantars are mute bilaterally. Results Urinalysis is negative for urinary tract infection. [place] virus PCR was not detected. - Laboratory Findings CBC and BMP: 03/16/21 12:37 03/16/21 12:37 Abnormal Lab Findings: Abnormal Labs 03/16/21 03/16/21 03/16/21 12:37 12:37 12:37 RDW 16.8 H Plt Count 122 L Chloride 110 H BUN 18 H Creatinine 1.21 H Glucose 115 H Calcium 8.1 L AST 45 H ALT 38 H Total Protein 5.8 L Albumin 3.2 L Urine Protein 1+ H Urine Mucus Rare H Assessment and Plan Assessment: Right neck pain with radiation with the right 4th and 5th digits. Likely cervical radiculopathy (C7-C8). Rule out plexopathy vs ulnar neuropathy. Cervical spondylosis (C4-C5 region upon reviewing CT cervical) Generalized weakness Bilateral frontal atrophy (seem moderate in severity) Chronic kidney disease History of right carotid endarterectomy History of cervical myopathy (that is reported in the history but daughter is not aware of it) Urinary incontinence Restless leg syndrome Hypertension Hyperlipidemia History of coronary artery disease status post CABG History of peripheral artery disease status post femoral stenting Plan: * CT of the head is reported as no acute intracranial hemorrhage or midline shift is seen. Frontal temporal lobe atrophy redemonstrated. I personally reviewed the CT of the head and I felt patient had bilateral frontal moderate to severe atrophy. * CT of the neck is reported as there is no acute fracture or dislocation evident in the cervical spine. Start the patient had cervical spondylosis over the C4-C5 region which seems moderate in severity. * AST is 45 and the ALT is 38. * TSH is 0.840 which is normal. * MRI of the cervical spine is ordered by the primary team. * Physical therapy and occupation therapy are consulted * I ordered routine EEG since patient daughter felt patient had AMS. Will not start the patient on antiepiletpic drug unless there is epileptiform discharges or seizure on the EEG. * I ordered vitamin B12, folate, vitamin B6 levels and hemoglobin A1c levels. I ordered 2-D echo for generalized weakness. * Recommend EMG with nerve conduction study as an outpatient of upper and lower extremities (to rule out cervical radiculopathy vs plexopathy vs neuropathy and has lower extremity numbness distal knees and down). * Is on Lyrica 150mg 1 tab tid. * Possibly the patient has underlying cognitive impairment/dementia. Upon discharge the patient needs to follow-up with a neurologist as outpatient within 1-2 weeks. The plan is discussed with the patient's daugher who is at bedside. Thank you for the consultation. Dayne Ruiz M.D. Neuro-hospitalist. Time with Patient: Greater than 30
--- NOTE | 2021-03-17 14:53 | MR ---
MRI CERVICAL SPINE: CLINICAL HISTORY: Recent fall injury with neck pain going into right arm TECHNIQUE: Multiplanar, multisequence imaging of the cervical spine is performed without IV contrast. COMPARISON: CT cervical spine from yesterday. FINDINGS: Persistent dependent fluid in the visualized portion of sphenoid sinuses. Sagittal images o f the cervical spine show the craniocervical junction to appear within normal limits. The cervical a nd upper thoracic spinal cord is normal in caliber and signal. Slight scoliotic curvature redemonstra freddie. Persistent grade 1 retrolisthesis C4 on C5 The vertebral body heights are normal. Persistent mo derate disc space narrowing C4-C5 level. The bone marrow signal intensity is within normal limits. Axial images at C2-C3 level appear within normal limits. Axial images at C3-C4 level show uncovertebral facet degenerative changes bilaterally with patent vikas ateral neural foramina. Axial images at C4-C5 level show spondylolisthesis with vertebral facet degenerative changes and post erior spur disc complex, there is effacement of the anterior thecal sac and moderate to advanced left greater than right bilateral neural foraminal narrowing. Axial images at C5-C6 level show uncovertebral facet degenerative changes bilaterally but patent bila teral neural foramina. Axial images at C6-C7 and C7-T1 levels appear within normal limits. IMPRESSION: Scoliotic curvature. Spondylolisthesis and moderate to advanced degenerative changes C4- C5 level as detailed above. Bilateral sphenoid sinusitis.
[2021-03-17] MEDS: HYDROcodone/APAP 7.5-325MG 1 EACH TAB PO PRN ×2 (15:19→21:49)
[2021-03-17] MEDS: HEPARIN SODIUM,PORCINE/PF 5,000 UNIT/0.5 ML SYRINGE SQ SCH ×2 (16:42→23:50)
[2021-03-17] MEDS: NYSTATIN 100,000 UNIT/GM POWD 15 GM TOPICAL SCH ×2 (16:43→21:00)
[2021-03-17 19:49] LABS: Folate, Serum 16.8 ng/mL
[2021-03-17 22:13] LABS: Hemoglobin A1C 5.8 % (4.0-6.0)
[2021-03-18] MEDS: LEVOTHYROXINE 50 MCG TAB PO SCH (06:01)
[2021-03-18] MEDS: SODIUM CHLORIDE 0.9% 1,000 ML IV SCH (06:01)
[2021-03-18 06:22] LABS: Anisocytosis Slight; HCT 33.9 % (34.0-46.0); HGB 11.5 gm/dL (11.4-16.0); MCH 27.8 pg (25.0-35.0); MCHC 33.7 g/dL (31.0-37.0); MCV 82.4 fL (80.0-100.0); Mean Platelet Volume 7.8; Platelet Count 111 k/uL (150-450); RBC 4.12 m/uL (3.80-5.40); RDW 16.6 % (11.5-15.5); WBC 2.6 k/uL (3.8-10.6)
[2021-03-18] MEDS ORDERED: PANTOPRAZOLE 40 MG TABLET PO SCH (07:30)
[2021-03-18] MEDS: SERTRALINE 100 MG TAB PO SCH (09:36)
[2021-03-18] MEDS: ISOSORBIDE MONONITRATE ER 30 MG TAB.ER.24H PO SCH (09:36)
[2021-03-18] MEDS: amLODIPine 5 MG TAB PO SCH (09:36)
[2021-03-18] MEDS: CLOPIDOGREL 75 MG TAB PO SCH (09:36)
[2021-03-18] MEDS: METOPROLOL TARTRATE 25 MG TAB PO SCH (09:36)
[2021-03-18] MEDS: allopurinoL 100 MG TAB PO SCH (09:36)
[2021-03-18] MEDS: BELBUCA 300 MCG MUCOUS MEM SCH (09:37)
[2021-03-18] MEDS: HEPARIN SODIUM,PORCINE/PF 5,000 UNIT/0.5 ML SYRINGE SQ SCH ×2 (09:37→16:11)
[2021-03-18] MEDS: COLCHICINE 0.6 MG EACH PO SCH (09:37)
--- NOTE | 2021-03-18 11:09 | P.DS ---
Providers Date of admission: 03/17/21 12:11 Expected date of discharge: 03/18/21 Attending physician: Emilie Young Consults: 03/17/21 08:00 Consult Physician Routine Consulting Provider: Estrella Perez Consult Reason/Comments: neck pain, right arm weakness pain Do you want consulting provider notified?: Yes 03/18/21 08:34 Consult Physician Routine Consulting Provider: Clay Floyd Consult Reason/Comments: significant cervical spondylosis Do you want consulting provider notified?: Yes Primary care physician: Emilie Young Hospital Course: HISTORY OF PRESENT ILLNESS This is an 80-year-old female patient of Dr. 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 Patient complains of increased fatigue over the weekend starting on Wednesday. Her daughter states that she was sleeping all day long. She was having increased weakness and normally can stand and move to bed to a chair but could not stand over the weekend almost was falling over. She was having some trouble chewing and she took her medications with Ensure. Patient complains of neck pain and all over generalized body aches. Pain is a #10 on a 10. She denies having chest pain. Patient complains of headache. She has had no nausea or vomiting but decreased appetite. Her last bowel movement was yesterday which was normal and she is on chronic MiraLAX. She has been worked up for spondylosis of the cervical spine and is scheduled for MRI of the neck on March 22. Daughter let her sleep at all during the day on Wednesday but on Wednesday morning she still continued to have weakness and fatigue and she decided to bring her in the hospital for evaluation. Patient was afebrile, heart rate 67, blood pressure 138/64, pulse ox 91%. EKG was sinus rhythm with left bundle branch block and no acute ST changes. Hemoglobin 13.1, WBC 5, platelet count 122. Sodium 137, potassium 3.8, chloride 110, CO2 24, BUN 18 and creatinine 1.21. Blood sugar 115. Magnesium 1.6. Total bilirubin 0.9, AST 45, ALT 38, alkaline phosphatase 120. Ammonia level XII. TSH 0.840. INR 1.0. Troponin negative. Urinalysis negative for infection. Chest x-ray showed no acute cardiopulmonary findings. CAT scan of the brain and cervical spine revealed no acute fracture or dislocation in the cervical spine. No acute intracranial hemorrhage or midline shift. Frontotemporal lobe atrophy redemonstrated compared to study from September 2020. 03/18: MRI of the cervical spine reveals scoliotic curvature. Spondylolisthesis and moderate to advanced degenerative changes C4-C5 level. Patient has been seen by neurology and EEG has been ordered, vitamin B12, folate, vitamin B6 and hemoglobin A1c. Echocardiogram as well as been ordered. There is recommendations for EMG with nerve conduction study as an outpatient for upper and lower extremities to rule out cervical radiculopathy versus plexopathy versus neuropathy. Patient to continue Lyrica 150 mg 3 times daily. Recommendations are for follow-up with neurology in 1-2 weeks after discharge. On evaluation today. Patient is denying any neck pain. She states she is feeling better from yesterday. She denies having any chest pain or shortness of breath and no abdominal pain. Discussed discharge planning with the patient and she does not want rehab. PT and OT were unable see the patient yesterday she was going for MRI. therapies has seen the patient today with recommendations for 03/18: MRI of the cervical spine reveals scoliotic curvature. Spondylolisthesis and moderate to advanced degenerative changes C4-C5 level. Patient has been seen by neurology and EEG has been ordered, vitamin B12, folate, vitamin B6 and hemoglobin A1c. Echocardiogram as well as been ordered. There is recommendations for EMG with nerve conduction study as an outpatient for upper and lower extremities to rule out cervical radiculopathy versus plexopathy versus neuropathy. Patient to continue Lyrica 150 mg 3 times daily. Recommendations are for follow-up with neurology in 1-2 weeks after discharge. On evaluation today. Patient is denying any neck pain. She states she is feeling better from yesterday. She denies having any chest pain or shortness of breath and no abdominal pain. Discussed discharge planning with the patient and she does not want rehab. PT and OT were unable see the patient yesterday she was going for MRI. senior contracts manager has met with the patient's daughter and she would like a hospice informational visit. We will plan for discharge home today. DISCHARGE DIAGNOSES 1. Generalized weakness and right upper extremity pain and weakness with history of spondylosis of the cervical spine. 2. Hyperlipidemia. 3. History of coronary artery disease. 4. Peripheral artery disease status post stent bilateral femoral. 5. Chronic kidney disease stage III with single kidney. 6. Hypertension. 7. Chronic gout. 8. Hypothyroidism. 9. Restless leg syndrome, stable. 10. Headache. 11. COPD without exacerbation. 12. Urinary incontinence. 13. Recurrent depression. 14. COVID-19 testing negative. Patient has been hospitalized during a pandemic. DISCHARGE PLAN Home. Hospice information meeting. Impression and plan of care have been directed as dictated by the signing physician. Lucretia Ordaz nurse practitioner acting as scribe for signing physician. Patient Condition at Discharge: Fair Plan - Discharge Summary Discharge Rx Participant: No New Discharge Prescriptions: New Nystatin 100,000 Unit/gm Powd [Mycostatin Powder] 1 applic TOPICAL BID applic Continue Tiotropium 18 Mcg/Puff [Spiriva] 1 puff INHALATION RT-DAILY Sertraline HCl 100 mg PO DAILY Isosorbide Mononitrate ER [Imdur] 30 mg PO BID clonazePAM [KlonoPIN] 0.5 mg PO TID PRN PRN Reason: Anxiety Metoprolol Tartrate [Lopressor] 25 mg PO BID #60 tab Nitroglycerin Sl Tabs [Nitrostat] 0.4 mg SUBLINGUAL Q5M PRN #25 tab PRN Reason: Chest Pain allopurinoL [Zyloprim] 100 mg PO BID Clopidogrel Bisulfate [Plavix] 75 mg PO DAILY amLODIPine [Norvasc] 5 mg PO BID Colchicine 0.6 mg PO DAILY Levothyroxine Sodium [Synthroid] 50 mcg PO DAILY Buprenorphine HCl [Belbuca] 300 mcg BC BID HYDROcodone/APAP 7.5-325MG [[place] 7.5-325] 1 tab PO QID PRN PRN Reason: Pain Butalb/APAP/Caff 50-325-40Mg [Fioricet 50-325-40] 1 tab PO Q4H PRN PRN Reason: Pain Pregabalin [Lyrica] 150 mg PO TID Discharge Medication List Isosorbide Mononitrate ER [Imdur] 30 mg PO BID 07/24/15 [History] Sertraline HCl 100 mg PO DAILY 07/24/15 [History] Tiotropium 18 Mcg/Puff [Spiriva] 1 puff INHALATION RT-DAILY 07/24/15 [History] clonazePAM [KlonoPIN] 0.5 mg PO TID PRN 08/13/15 [History] Metoprolol Tartrate [Lopressor] 25 mg PO BID #60 tab 08/21/15 [Rx] Nitroglycerin Sl Tabs [Nitrostat] 0.4 mg SUBLINGUAL Q5M PRN #25 tab 08/21/15 [Rx] Clopidogrel Bisulfate [Plavix] 75 mg PO DAILY 07/25/16 [History] allopurinoL [Zyloprim] 100 mg PO BID 07/25/16 [History] amLODIPine [Norvasc] 5 mg PO BID 07/25/16 [History] Colchicine 0.6 mg PO DAILY 08/26/20 [History] Levothyroxine Sodium [Synthroid] 50 mcg PO DAILY 08/26/20 [History] Buprenorphine HCl [Belbuca] 300 mcg BC BID 03/16/21 [History] Butalb/APAP/Caff 50-325-40Mg [Fioricet 50-325-40] 1 tab PO Q4H PRN 03/16/21 [History] HYDROcodone/APAP 7.5-325MG [[place] 7.5-325] 1 tab PO QID PRN 03/16/21 [History] Pregabalin [Lyrica] 150 mg PO TID 03/16/21 [History] Nystatin 100,000 Unit/gm Powd [Mycostatin Powder] 1 applic TOPICAL BID applic 03/18/21 [Rx] Follow up Appointment(s)/Referral(s): Emilie Young MD [Primary Care Provider] - 1 Week Discharge Disposition: HOME WITH HOME HEALTH SERVICES
--- NOTE | 2021-03-18 11:23 | P.PN ---
Progress Note - Text Progress Note Date: 03/18/[address] of the C spine reviewed. There is spondylosis of C4-5 with collapse of the disc space that causes mild to moderate central and foraminal stenosis. There is a very mild anterior listhesis of C5-6 with maintained disc height. C0-1 and C1-2 appear stable. No acute fracture or dislocation. There is substantial motion artifact at the lower levels. No myelomalacia or cord signal changes evident. Full consult pending If pt not myelopathic OK for conservative treatment and f/u out pt Would recommend steroids, Gabapentin, muscle relaxer as tolerated. PT/OT
[2021-03-18] MEDS: HYDROcodone/APAP 7.5-325MG 1 EACH TAB PO PRN (11:50)
[2021-03-18] MEDS: PREGABALIN 75 MG CAP PO SCH ×2 (11:50→16:11)
[2021-03-18 12:05] VITALS: BP 156/64; PULSE 61; RESP 17; TEMP 97.8
[2021-03-18] MEDS: TIOTROPIUM 2.5 MCG INHALER INHALATION SCH (12:18)
[2021-03-18] MEDS: clonazePAM 0.5 MG TAB PO PRN (12:22)
[2021-03-18] MEDS: NYSTATIN 100,000 UNIT/GM POWD 15 GM TOPICAL SCH (14:01)
[2021-03-18 15:49] LABS: Albumin/Globulin Ratio 1.43 (1.60-3.17); Anion Gap 10.7 mmol/L (4.00-12.00); BUN/Creat Ratio 14.44 Ratio (12.00-20.00); Calcium 7.8 mg/dL (8.7-10.3); Carbon Dioxide 22.3 mmol/L (21.6-31.8); Globulin 2.1 g/dL (1.6-3.3); Non-African American GFR(CKD) 59.5 (60.0-200.0); Potassium 3.7 mmol/L (3.5-5.5); Total Bilirubin 0.4 mg/dL (0.2-1.2); Total Protein 5.1 g/dL (6.2-8.2)
[2021-03-18] MEDS: HYDROmorphone 0.5 MG/0.5 ML SYRINGE IVP PRN (16:18)
--- NOTE | 2021-03-18 16:34 | EEG ---
ELECTROENCEPHALOGRAM REPORT DATE OF SERVICE: Date of service is 03/18/2021. CLINICAL HISTORY: This is an 80-year-old woman with an episode of altered mental status. The video EEG is obtained to evaluate for seizure activity. RELEVANT MEDICATION: The patient is not on any antiepileptic drugs. EEG TYPE: Routine 21 channel EEG is performed with video using the 10/20 electrode placement system. DESCRIPTION: Wakefulness and drowsiness are obtained. During wakefulness, there is a posterior dominant rhythm of low to moderate voltage of 6.5-7.5 hertz that is well modulated well sustained activity. There is no physiological stage 2 sleep architecture seen. There is no focal slowing. Interictal and ictal are none. ACTIVATION PROCEDURE: Photic stimulation did not evoke a posterior driving response. Hyperventilation is not performed. CLINICAL INTERPRETATION: This is an abnormal routine EEG. The background slowing is suggestive of mild encephalopathy. There are no focal slowing, epileptiform discharge or seizure on the EEG. Clinical correlation is recommended. PRASAD / TOMÁS: [id number] / MTDD
--- NOTE | 2021-03-18 18:24 | P.PN ---
Subjective Progress Note Date: 03/18/21 The patient was seen at bedside and per the patient's nurse she is doing well and no acute events overnight. MRI Cervical spine: Scolitioic curvature. Spondylolisthesis and moderate to advanced degenerative changes C4-C5 level. Bilateral sphenoid sinusitis. TSH: 0.840 (normal). Vitamin B12: 758 (normal). Folate: 16.8 (normal). EEG: The background slowing is suggestive of mild encephalopathy. There are no focal slowing, epileptiform discharges or seizure on the EEG. Objective - Vital Signs Vital signs: Vital Signs Temp 97.8 F 03/18/21 12:04 Pulse 61 03/18/21 12:04 Resp 17 03/18/21 12:04 BP 156/64 03/18/21 12:04 Pulse Ox 96 03/18/21 12:04 Intake & Output 03/17/21 03/18/21 03/18/21 18:59 06:59 18:59 Intake Total 825 Balance 825 Intake: Intake, IV Titration 825 Amount Sodium Chloride 0.9% 1, 825 000 ml @ 75 mls/hr IV . [id number] [facility] Rx#:[id number] Other: Voiding Method Bedside Commode Bedpan Bedpan # Voids 2 1 - Exam GENERAL: The patient is lying in bed and is not in acute distress. NEUROLOGICAL: Higher mental function: The patient is awake, alert, oriented to self. She sta freddie she was in the hospital and with option chose the correct hospital. She stated the month was March and on repeated she stated it was February. The year she stated was 2002. Patient is following commands. No aphasia and no neglect. Cranial nerves: The pupils are round, equal and reactive to light. Visual mari are full to confrontation throughout. Extraocular movement is intact no nystagmus is noted. Facial sensation is normal to touch throughout. The facial strength is normal throughout. Hearing is moderately decreased bilaterally to hand rub. Tongue is midline and moved [id number] without any difficulty. No dysarthria is noted. Motor: Gait is deferred because of pain. The strength is moving bilateral upper extremities above gravity without drift but limited because of pain. Hard time assessing lower extremities since patient was in pain. Normal tone and bulk. Sensation: Decrease to touch over the right entire 4th and 5th digits and had decrease sensation to distal knees up to tips of toes bilaterally. Reflexes (right/left): 2+ throughout upper and 1+ in lowers Plantars are mute bilaterally. - Labs CBC & Chem 7: 03/18/21 05:50 03/18/21 05:50 Labs: Abnormal Lab Results - Last 24 Hours (Table) 03/18/21 03/18/21 Range/Units 05:50 05:50 WBC 2.6 L (3.8-10.6) k/uL Hct 33.9 L (34.0-46.0) % RDW 16.6 H (11.5-15.5) % Plt Count 111 L (150-450) k/uL Chloride 111 H (96-109) mmol/L Est GFR (CKD-EPI)NonAf 59.5 L (60.0-200.0) Calcium 7.8 L (8.7-10.3) mg/dL Alkaline Phosphatase 142 H (41-126) U/L Total Protein 5.1 L (6.2-8.2) g/dL Albumin 3.00 L (3.80-4.90) g/dL Albumin/Globulin Ratio 1.43 L (1.60-3.17) g/dL Assessment and Plan Assessment: Right neck pain with radiation with the right 4th and 5th digits. Likely cervical radiculopathy (C7-C8). Rule out plexopathy vs ulnar neuropathy. Cervical spondylosis (C4-C5 region upon reviewing CT cervical) Generalized weakness Bilateral frontal atrophy (seem moderate in severity) Chronic kidney disease History of right carotid endarterectomy History of cervical myopathy (that is reported in the history but daughter is not aware of it) Urinary incontinence Restless leg syndrome Hypertension Hyperlipidemia History of coronary artery disease status post CABG History of peripheral artery disease status post femoral stenting Plan: * CT of the head is reported as no acute intracranial hemorrhage or midline shift is seen. Frontal temporal lobe atrophy redemonstrated. I personally re viewed the CT of the head and I felt patient had bilateral frontal moderate to severe atrophy. * CT of the neck is reported as there is no acute fracture or dislocation evident in the cervical spine. Start the patient had cervical spondylosis over the C4-C5 region which seems moderate in severity. * AST is 45 and the ALT is 38. * TSH is 0.840 which is normal. * MRI Cervical spine: Scolitioic curvature. Spondylolisthesis and moderate to advanced degenerative changes C4-C5 level. Bilateral sphenoid sinusitis. * TSH: 0.840 (normal). Vitamin B12: 758 (normal). Folate: 16.8 (normal). HbA1c: 5.8 (normal). * EEG: The background slowing is suggestive of mild encephalopathy. There are no focal slowing, epileptiform discharges or seizure on the EEG. * I consulted Orthopedic team regarding cervical spondylosis * Physical therapy and occupation therapy are consulted * Recommend EMG with nerve conduction study as an outpatient of upper and lower extremities (to rule out cervical radiculopathy vs plexopathy vs neuropathy and has lower extremity numbness distal knees and down). * Is on Lyrica 150mg 1 tab tid. * Possibly the patient has underlying cognitive impairment/dementia. Upon discharge the patient needs to follow-up with a neurologist as outpatient within 1-2 weeks. The plan is discussed with the patient's daugher who is at bedside. Dayne Ruiz M.D. Neuro-hospitalist.
--- NOTE | 2021-03-19 10:18 | P.CNOR ---
History of Present Illness - [facility] Consult date: 03/18/21 Consult reason: neck pain History of present illness: Patient is an 80-year-old female who presented to [facility] on 03/16/2021 for evaluation of generalized weakness, inability to ambulate, neck pain along with numbness and tingling of her right upper extremity. Patient was initially evaluated by both internal medicine and neurology. A cervical MRI was ordered, Dr. Floyd was initially able to evaluate that study. There were no acute areas of spinal cord compression, there were generalized areas of cervical spondylosis. There was no emergent orthopedic surgical intervention warranted I was able to evaluate patient at bedside on 03/18/2021. Patient's daughter was present at bedside. Patient has a very significant medical history with multiple medical comorbidities. Orthopedically, she has history of degenerative disc disease diagnosed in her both cervical and lumbar spine. She was evaluated by an orthopedic surgeon in [facility] many years ago for her low back, he had recommended surgery at that time. Patient never underwent initial surgery. Patient's daughter provided most of the history today, she does live with her mother and helps take care of her on a daily basis. States over the last month or so patient's generalized weakness and difficulty with ambulation and has gotten worse. She states that she's been complaining of the numbness in the fifth and fourth digit on that right hand for the last week or so. She does have generalized low back and neck pain. She denies any previous surgery of the cervical or lumbar spine at this time. Patient denies any recent trauma this to include falls. Patient is having no left upper or lower extremity symptoms, this to include obvious numbness or tingling or radiating pain. She has a very complex vascular history with regards to procedures, including both on the lower extremities and her heart. When asked about bowel or bladder incontinence, there is been no issues with bowel incontinence. She states she has had a few instances of urinary incontinence. She states she can feel them coming on, they're very quickly and she has a difficult time getting to the bathroom. She denies any genital or peroneal numbness or tingling. Review of Systems Constitutional: Reports as per HPI Past Medical History Past Medical History: Coronary Artery Disease (CAD), Chest Pain / Angina, COPD, CVA/TIA, Hyperlipidemia, Hypertension, Myocardial Infarction ([place]), Myocardial Infarction (non Q-wave), Musculoskeletal Disorder, Osteoarthritis (OA), Renal Disease, Thyroid Disorder, Vascular Disorder Additional Past Medical History / Comment(s): Other HX: Solitary kidney (L kidney nonfunctioning), PVD, TIA, vertigo, GOUT bilateral feet toes and R thumb, CHRONIC LUMBAR BACK PAIN, heniated discs. . Last Myocardial Infarction Date:: 2009 History of Any Multi-Drug Resistant Organisms: None Reported Past Surgical History: Coronary Bypass/CABG, Tonsillectomy Additional Past Surgical History / Comment(s): 2010 Cabg-3 vessel, Bilateral FEMEROL ARTERY STENTs about 10 yrs ago. RIGHT CAROTID ENDARTECTOMY, colonoscopy with benign polypectomy. Past Anesthesia/Blood Transfusion Reactions: No Reported Reaction Additional Past Anesthesia/Blood Transfusion Reaction / Comm: Pt believes she recieved blood with CABG-no reaction recalled. Past Psychological History: Depression Additional Psychological History / Comment(s): Pt resides with daughter for 3 years. She also has a rolling walker with a seat. Smoking Status: Former smoker Past Alcohol Use History: None Reported Additional Past Alcohol Use History / Comment(s): Pt states she smokes about 1/2 ppd. She started smoking at age 12yrs. Past Drug Use History: None Reported - Past Family History Mother Family Medical History: Cancer Additional Family Medical History / Comment(s): BREAST with mets- at 67 yrs of age. Father History Unknown: Yes Medications and Allergies Home Medications Medication Instructions Recorded Confirmed Type Isosorbide Mononitrate ER [Imdur] 30 mg PO BID 07/24/15 03/16/21 History Sertraline HCl 100 mg PO DAILY 07/24/15 03/16/21 History Tiotropium 18 Mcg/Puff [Spiriva] 1 puff INHALATION RT-DAILY 07/24/15 03/16/21 History clonazePAM [KlonoPIN] 0.5 mg PO TID PRN 08/13/15 03/16/21 History Metoprolol Tartrate [Lopressor] 25 mg PO BID #60 tab 08/21/15 03/16/21 Rx Nitroglycerin Sl Tabs [Nitrostat] 0.4 mg SUBLINGUAL Q5M PRN #25 tab 08/21/15 03/16/21 Rx Clopidogrel Bisulfate [Plavix] 75 mg PO DAILY 07/25/16 03/16/21 History allopurinoL [Zyloprim] 100 mg PO BID 07/25/16 03/16/21 History amLODIPine [Norvasc] 5 mg PO BID 07/25/16 03/16/21 History Colchicine 0.6 mg PO DAILY 08/26/20 03/16/21 History Levothyroxine Sodium [Synthroid] 50 mcg PO DAILY 08/26/20 03/16/21 History Buprenorphine HCl [Belbuca] 300 mcg BC BID 03/16/21 03/16/21 History Butalb/APAP/Caff 50-325-40Mg 1 tab PO Q4H PRN 03/16/21 03/16/21 History [Fioricet 50-325-40] HYDROcodone/APAP 7.5-325MG [[place] 1 tab PO QID PRN 03/16/21 03/16/21 History 7.5-325] Pregabalin [Lyrica] 150 mg PO TID 03/16/21 03/16/21 History Nystatin 100,000 Unit/gm Powd 1 applic TOPICAL BID applic 03/18/21 Rx [Mycostatin Powder] Allergies Allergy/AdvReac Type Severity Reaction Status Date / Time hydralazine Allergy Rash/Hives Verified 03/16/21 14:15 [id number] Reductase AdvReac Unknown Verified 03/16/21 14:15 Inhibitor zolpidem [From Ambien] AdvReac Unknown Verified 03/16/21 14:15 Physical Examination Gen: AOx3, NAD VSS stable at this time Integument: No obvious skin changes, this to include open lesions, erythema or areas of soft tissue swelling involving the cervical, thoracic or lumbar Palpation: No significant tenderness with palpation in the midline areas of the cervical, thoracic or lumbar area. She does have minimal paraspinal tenderness in the cervical and lumbar region. ROM: Range of motion of the bilateral upper extremities and lower extremities are intact, general lack of full degrees of motion due to her medical state and age Sensory Exam: Senory exam to light touch is intact C5-T1 Senosry exam to light touch is intact L2-S1 Motor: Strength testing of the bilateral upper and lower extremities do demonstrate deficits, ranging from 2-3, 3-4 out of 5. This does seem due to her medical state versus an acute neurological component Reflexes: 2/4 in all UE, 14 in all LE Negative Dimitrios's bilaterally Negative Babinski bilaterally Negative clonus bilaterally Results - Labs Labs: Abnormal Lab Results - Last 24 Hours (Table) 03/18/21 Range/Units 05:50 Chloride 111 H (96-109) mmol/L Est GFR (CKD-EPI)NonAf 59.5 L (60.0-200.0) Calcium 7.8 L (8.7-10.3) mg/dL Alkaline Phosphatase 142 H (41-126) U/L Total Protein 5.1 L (6.2-8.2) g/dL Albumin 3.00 L (3.80-4.90) g/dL Albumin/Globulin Ratio 1.43 L (1.60-3.17) g/dL H & H 03/16/21 03/18/21 Range/Units 12:37 05:50 Hgb 13.1 11.5 (11.4-16.0) gm/dL Hct 38.4 33.9 L (34.0-46.0) % Coagulation 03/16/21 Range/Units 12:37 INR 1.0 (<1.2) Result Diagrams: 03/18/21 05:50 03/18/21 05:50 Assessment and Plan Assessment: C4-5 spondylosis C4-5 mild to moderate central canal and foraminal stenosis Mild anterior listhesis C5-6 Generalized weakness Difficulty with ambulation Multiple medical comorbidities Plan: A long discussion with the patient and daughter at bedside today regarding possi ble treatment options at this time. The MRI was reviewed by Dr. Floyd, the areas of spinal canal stenosis do not correlate at this time with the radicular symptoms she is having. Taking into consideration her previous diagnosis of lumbar degenerative disc disease and being offered surgery, I imagine both her lumbar pathology and cervical pathology are contributing to her generalized weakness and difficulty with ambulation. We did discuss possibility of both thoracic and lumbar MRIs while she is in the hospital for further diagnosis. Internal medicine had a long discussion with the patient's daughter and her regarding a hospice consult, and they're taking that route at this time. Our office information will be provided for patient to follow-up with Dr. Floyd outpatient setting to discuss further treatment if they desire Please contact us with any further questions regarding the patient Time with Patient: Less than 30
== END 2021-03-18 16:56 | disposition hospice, home (50) | DRG 552 ==
LOC: EC 12:11 → 5NMEDONC 13:56 → OBSVTOIN 03-17 12:11
PROVIDERS: ADMIT Internal Medicine; ATTEND Internal Medicine
DX: M47.12 Other spondylosis with myelopathy, cervical region (principal); F33.9 Major depressive disorder, recurrent, unspecified; N18.30 Chronic kidney disease, stage 3 unspecified; J44.9 Chronic obstructive pulmonary disease, unspecified; G31.9 Degenerative disease of nervous system, unspecified; I73.9 Peripheral vascular disease, unspecified; Z20.822 Contact with and (suspected) exposure to COVID-19; M43.12 Spondylolisthesis, cervical region; M47.22 Other spondylosis with radiculopathy, cervical region; M48.02 Spinal stenosis, cervical region; M50.30 Other cervical disc degeneration, unspecified cervical region; M51.36 Other intervertebral disc degeneration, lumbar region; G25.81 Restless legs syndrome; I12.9 Hypertensive chronic kidney disease with stage 1 through stage 4 chronic kidney disease, or unspecified chronic kidney disease; E03.9 Hypothyroidism, unspecified; E78.5 Hyperlipidemia, unspecified; I25.10 Atherosclerotic heart disease of native coronary artery without angina pectoris; G89.29 Other chronic pain; I25.2 Old myocardial infarction; I44.7 Left bundle-branch block, unspecified; J32.3 Chronic sphenoidal sinusitis; M1A.9XX0 Chronic gout, unspecified, without tophus (tophi); R26.2 Difficulty in walking, not elsewhere classified; R32 Unspecified urinary incontinence; M19.90 Unspecified osteoarthritis, unspecified site; Z79.02 Long term (current) use of antithrombotics/antiplatelets; Z79.890 Hormone replacement therapy; Z79.899 Other long term (current) drug therapy; Z87.891 Personal history of nicotine dependence; Z86.73 Personal history of transient ischemic attack (TIA), and cerebral infarction without residual deficits; Z90.711 Acquired absence of uterus with remaining cervical stump; Z87.42 Personal history of other diseases of the female genital tract; Z90.89 Acquired absence of other organs; Z95.1 Presence of aortocoronary bypass graft; Z95.828 Presence of other vascular implants and grafts; Z86.79 Personal history of other diseases of the circulatory system; Z90.5 Acquired absence of kidney; Z98.890 Other specified postprocedural states; Z88.8 Allergy status to other drugs, medicaments and biological substances; Z80.3 Family history of malignant neoplasm of breast; Z80.8 Family history of malignant neoplasm of other organs or systems; Z82.49 Family history of ischemic heart disease and other diseases of the circulatory system
CPT/HCPCS: 36415; 70450; 71045; 72125; 72141; 80053; 81001; 82140; 82607; 82746; 83036; 83735; 84207; 84443; 84484; 85025; 85027; 85610; 85730; 87635; 93005; 94640; 95816; 96361; 96374; 99285